=== PATIENT | female | born 1995 | race Caucasian/White ===

== ENCOUNTER 2018-09-28 20:15 | Inpatient (IN) | payer BC, OTHER ==
[2018-09-28 20:30] VITALS: BMI 36.9
--- NOTE | 2018-09-28 20:30 | PDOC ---
Rapid Medical Evaluation Chief Complaint: Weakness Time Seen by Provider: 09/28/18 20:25 Medical Evaluation: 09/28/18 20:25 I have performed a brief in-person evaluation of this patient. The patient presents with a chief complaint of: numbness to lower extremities since Tuesday - seen by PMD Tuesday and waits for MRI approval. Mom reports has been unsteady on feet due to weakness. Pertinent physical exam findings: AOx3, walks with unsteadiness I have ordered the following: UCG, UA, The patient will proceed to the ED for further evaluation. 09/28/18 20:30 Discharge Disposition - Diagnosis Weakness - Referrals - Patient Instructions - Post Discharge Activity
--- NOTE | 2018-09-28 21:30 | PDOC ---
History of Present Illness - General Chief Complaint: Weakness Stated Complaint: BLE NUMBNESS Time Seen by Provider: 09/28/18 20:25 - History of Present Illness Initial Comments: 23yo F with no significant PMH presenting with progressive abnormal sensation in her bilateral lower extremity. Patient states that two months ago she noted her bilateral feet had numbness and tingling. The sensation ascended to her knees and on Tuesday extended to her waist. The sensation is not painful and while the patient has normal strength and sense of position in her legs, she states she cannot feel them moving such that she needs to use visual cues to help her walk. Patient has had tripping and stumbling, and recently suffered a fall in which she landed on the ground. Did not hit her head and denies LOC. Reports saddle anesthesia. No IVDU or history of malignancy. No recent camping. No urinary/stool incontinence or significant weight change. No back pain. Saw her primary care provider on Tuesday upon which MRI was ordered, however, is pending insurance approval. Has never seen a neurologist but has an appointment to see one next week. Denies fevers, chills, chest pain, or shortness of breath. PCP: Dr. Bojorquez (in [place]) Past History - Past Medical History Allergies/Adverse Reactions: Allergies Allergy/AdvReac Type Severity Reaction Status Date / Time peanut Allergy Severe Rash Verified 09/28/18 20:30 Home Medications: Ambulatory Orders NK [No Known Home Medication] 09/28/18 COPD: No - Suicide/Smoking/Psychosocial Hx Smoking History: Never smoked Have you smoked in the past 12 months: No Information on smoking cessation initiated: No Hx Alcohol Use: No Drug/Substance Use Hx: No Review of Systems - Review of Systems Comments:: Constitutional: no fever, no chills HEENT: no throat pain, no dysphagia Cardiovascular: no chest pain, no palpitations Respiratory: no cough, no shortness of breath Gastrointestinal: no abdominal pain, no nausea Genitourinary: no dysuria, no frequency Musculoskeletal: no leg pain, no back pain Skin: no rash, no itching Neurologic: no headache, +abnormal sensation in BLE *Physical Exam - Vital Signs Last Vital Signs Temp Pulse Resp BP Pulse Ox 98.8 F 100 H 16 141/78 100 09/28/18 20:27 09/28/18 20:27 09/28/18 20:27 09/28/18 20:27 09/28/18 20:27 - Physical Exam Comments: General: Awake, alert, and fully oriented, in no acute distress Head: No signs of trauma Eyes: EOMI, sclera anicteric ENT: Moist mucus membranes Neck: Normal ROM, supple Lungs: Lungs clear, Normal breath sounds Cardio: Regular rhythm, S1 and S2 present Abdomen: Soft, nontender. No guarding, no rebound, no masses Extremities: Normal range of motion, Distal pulses present SKIN: Warm, Dry, normal turgor Neurologic: Cranial nerves II through XII intact. Normal speech, strength, coordination, and gait. Decreased sensation in BLE. Rectal: The skin is without erythema or induration. No external hemorrhoids, fissures, skin tags, warts, or discharge. Sphincter tone normal. There are no masses palpated on digital exam. ED Treatment Course - LABORATORY CBC & Chemistry Diagram: 09/29/18 07:15 09/29/18 07:15 Medical Decision Making - Medical Decision Making 23yo F with no significant PMH presenting with progressive abnormal sensation in her bilateral lower extremity. DDX including but not limited to cauda equina syndrome, mass, guillain barre syndrome, multiple sclerosis, B12 deficiency Labs Plan for admission 09/28/18 21:31 MRI is not available at this facility at this time. Discussed case with Dr. Pearl who recommended T spine and L spine MRI. He recommends awaiting a diagnosis before administering steroids. We will plan to admit the patient. 09/28/18 22:17 EKG: rate 78, QTc 424, NSR CBC WBC 7.6 K/mm3 (4.0-10.0) 09/29/18 07:15 RBC 4.36 M/mm3 (3.60-5.2) 09/29/18 07:15 Hgb 13.0 GM/dL (10.7-15.3) 09/29/18 07:15 Hct 37.9 % (32.4-45.2) 09/29/18 07:15 MCV 87.1 fl (80-96) 09/29/18 07:15 MCH 29.7 pg (25.7-33.7) 09/29/18 07:15 MCHC 34.2 g/dl (32.0-36.0) 09/29/18 07:15 RDW 13.3 % (11.6-15.6) 09/29/18 07:15 Plt Count 346 K/MM3 (134-434) 09/29/18 07:15 MPV 7.5 fl (7.5-11.1) 09/29/18 07:15 Absolute Neuts (auto) 4.5 K/mm3 (1.5-8.0) 09/29/18 07:15 Neutrophils % 58.7 % (42.8-82.8) 09/29/18 07:15 Lymphocytes % 32.5 % (8-40) 09/29/18 07:15 Monocytes % 7.1 % (3.8-10.2) 09/29/18 07:15 Eosinophils % 1.5 % (0-4.5) 09/29/18 07:15 Basophils % 0.2 % (0-2.0) 09/29/18 07:15 Nucleated RBC % 0 % (0-0) 09/29/18 07:15 ESR 15 mm/hr (0-20) 09/28/18 22:57 No anemia or leukocytosis Electrolytes unremarkable Dr. Whitlock discussed case with inpatient team who accepted patient for admission under Dr. Victor 09/29/18 00:28 *DC/Admit/Observation/Transfer Diagnosis at time of Disposition: Weakness, Paresthesia of both legs - Discharge Dispostion Condition at time of disposition: Fair - Referrals - Patient Instructions - Post Discharge Activity
[2018-09-28 22:36] LABS: EPI CELLS 4.7 /HPF (0-5/HPF); HYALINE CASTS 6 /lpf (0-8); URINE APPEARANCE CLOUDY; URINE BACTERIA 415.6 /hpf (NEGATIVE); URINE BILIRUBIN NEGATIVE (NEGATIVE); URINE COLOR YELLOW; URINE GLUCOSE (UA) NEGATIVE (NEGATIVE); URINE KETONE NEGATIVE (NEGATIVE); URINE LEUK ESTERASE 2+ (NEGATIVE); URINE NITRITE NEGATIVE (NEGATIVE); URINE PROTEIN NEGATIVE (NEGATIVE); URINE UROBILINOGEN 0.2 mg/dL (0.2-1.0); URINE WBC 23 /hpf (0-5)
[2018-09-28 22:44] LABS: URINE RBC 19.3 /hpf (0-4)
[2018-09-28 23:17] LABS: HEMATOCRIT 39.2 % (32.4-45.2); HEMOGLOBIN 13.5 GM/dL (10.7-15.3); MCH 29.8 pg (25.7-33.7); MCHC 34.3 g/dl (32.0-36.0); MEAN CELL VOLUME 86.9 fl (80-96); MEAN PLT VOLUME 7.6 fl (7.5-11.1); PLATELET COUNT 384 K/MM3 (134-434); RBC 4.52 M/mm3 (3.60-5.2); RDW 12.9 % (11.6-15.6); WHITE BLOOD COUNT 7.4 K/mm3 (4.0-10.0)
[2018-09-28 23:18] LABS: NEUT % 50.8 % (42.8-82.8)
[2018-09-28 23:19] LABS: BASO % 0.4 % (0-2.0); EOS % 2.2 % (0-4.5); MONO % 6.6 % (3.8-10.2)
[2018-09-28 23:32] LABS: ALBUMIN 3.7 g/dl (3.4-5.0); BILIRUBIN,TOTAL 0.5 mg/dL (0.2-1); BLOOD UREA NITROGEN 15.1 mg/dL (7-18); CALCIUM 8.9 mg/dL (8.5-10.1); CREATININE 0.8 mg/dL (0.55-1.3); POTASSIUM 3.9 mmol/L (3.5-5.1); TOT PROT 7.6 g/dl (6.4-8.2)
--- NOTE | 2018-09-28 23:37 | PDOC ---
Documentation entered by Gentry Marina SCRIBE, acting as scribe for Jaquelin Whitlock DO. Jaquelin Whitlock DO: This documentation has been prepared by the Salas escobar Joel, SCRIBE, under my direction and personally reviewed by me in its entirety. I confirm that the documentation accurately reflects all work, treatment, procedures, and medical decision making performed by me. Attending Attestation - Resident Resident Name: RosalindaTrenaCarey - ED Attending Attestation I have performed the following: I have examined & evaluated the patient, The case was reviewed & discussed with the resident, I agree w/resident's findings & plan, Exceptions are as noted - HPI HPI: 09/28/18 23:17 The patient is a 23 year old female with a significant PMH of ovarian cysts who presents to the emergency department for evaluation of worsening bilateral lower extremity numbness for the past 2 months which worsened 4 days ago. The patient states she has had intermittent episodes of bilateral lower extremity numbness which began in her feet and has radiated up her legs towards the umbilicus. She states she is unable to feel her feet touch the ground and subsequently had a fall last Tuesday in the setting of right leg weakness. She states she saw her PCP earlier in the week who ordered an MRI but was waiting on pre-approval. The patient states she is afraid to move on the bed as she does not want to fall. The patient denies chest pain, shortness of breath, headache and dizziness. Denies fever, chills, nausea, vomit, diarrhea and constipation. Denies dysuria, frequency, urgency and hematuria. Allergies: Peanuts. Past surgical history: None reported. Social history: No reported cigarette, alcohol, or drug use. - Physicial Exam PE: 09/28/18 23:18 GENERAL: Awake, alert, and fully oriented, in no acute distress HEAD: No signs of trauma EYES: PERRLA, EOMI, sclera anicteric, conjunctiva clear ENT: Auricles normal inspection, hearing grossly normal, nares patent, oropharynx clear without exudates. Moist mucosa NECK: Normal ROM, supple, no lymphadenopathy, JVD, or masses LUNGS: Breath sounds equal, clear to auscultation bilaterally. No wheezes, and no crackles HEART: Regular rate and rhythm, normal S1 and S2, no murmurs, rubs or gallops ABDOMEN: Soft, nontender, normoactive bowel sounds. No guarding, no rebound. No masses EXTREMITIES: Normal range of motion, no edema. No clubbing or cyanosis. No cords, erythema, or tenderness. 5/5 strength in upper extremities. NEUROLOGICAL: (+) Sensory change in bilateral LE up to level of umbilicus. (+) Hot/cold intolerance in bilateral LE. Normal finger to nose. Normal proprioception. Cranial nerves II through XII grossly intact. Normal speech. SKIN: Warm, Dry, normal turgor, no rashes or lesions noted. - Medical Decision Making 09/28/18 23:21 I, Dr. Jaquelin Whitlock, DO, attest that this document has been prepared under my direction and personally reviewed by me in its entirety. I further attest, that it accurately reflects all work, treatment, procedures and medical decision -making performed by me. 09/28/18 23:21 a/p: 23yo female with hx of ovarian cyst with 2m of progressive numbness and tingling to LE -started at her feet and now up to the level of the umbilicus -pt denies trauma -states it worsened this week -denies recent infections, no tick bites -states sensory changes and numbness -states she has started to feel off balance today because of sensory changes -fell today -cannot feel when she wipes, but no loss of bowel or bladder -has appt with Dr. Shannon for next week -resident discussed the case with dr. shannon who recommends MRI t/l spine -will send labs -no steroids at this time, concern for ms vs gbs, vs posterior lateral cord syndrome vs tabes dorsalis -will send b12, hiv, rpr -pt will need admission 09/28/18 23:36 labs reviewed microblog sent to [facility] pt willing to stay for neuro eval and mri tomorrow 09/29/18 00:23 case discussed with [facility] who accepts pt to service resident at the bedside to eval the patient *DC/Admit/Observation/Transfer Diagnosis at time of Disposition: Weakness, Paresthesia of both legs - Discharge Dispostion Condition at time of disposition: Fair Decision to Admit order: Yes - Referrals - Patient Instructions - Post Discharge Activity Heart Score/ECG Review - ECG Intrepretation Comment:: 09/28/18 23:37 sinus at 78, nl axis, nl interval, no acute st/t wave findings
[2018-09-28 23:49] LABS: INR 1.11 (0.83-1.09); PROTHROMBIN TIME (PATIENT) 13.1 SEC (9.7-13.0)
--- NOTE | 2018-09-29 00:45 | PN ---
Teaching Attending Note Name of Resident: Narda Delgado ATTENDING PHYSICIAN STATEMENT I saw and evaluated the patient. I reviewed the resident's note and discussed the case with the resident. I agree with the resident's findings and plan as documented. SUBJECTIVE: Patient is a 23 year old woman with a PMH of oOarian cysts who presents to the ER for evaluation of worsening bilateral lower extremity numbness for the past 2 months which worsened 4 days ago. The patient states she has had intermittent episodes of bilateral lower extremity numbness which began in her feet and has radiated up her legs towards the umbilicus. She states she is unable to feel her feet touch the ground and subsequently had a fall last Tuesday in the setting of right leg weakness. No loss of bladder or bowel function. LMP ended on September 17, 2018. She states she saw her PCP earlier in the week who ordered an MRI but was waiting on pre-approval. The patient states she is afraid to move on the bed as she does not want to fall. The patient denies chest pain, shortness of breath, headache and dizziness. Denies fever, chills, nausea, vomit , diarrhea and constipation. Denies dysuria, frequency, urgency and hematuria. OBJECTIVE: Alert Vital Signs Period Temp Pulse Resp BP Sys/Turner Pulse Ox Last 24 Hr 98.8 F-98.8 F 95-100 16-18 129-141/76-78 100-100 HEENT: No Jaundice, eye redness or discharge, PERRLA, EOMI. Normocephalic, atraumatic. External ears are normal and hearing is grossly intact. No nasal discharge. Neck: Supple, nontender. No palpable adenopathy or thyromegaly. No JVD Chest: Good effort. Clear to auscultation and percussion. Heart: Regular. No S3, rub or murmur Abdomen: Not distended, soft, nontender and no HSM. No rebound or guarding. Normal bowel sounds. Ext: Peripheral pulses intact. No leg edema. Skin: Warm and dry. No petechiae, rash or ecchymosis. Neuro: Alert. Oriented x3. CN 2-12 grossly intact. Diminished sensation in bilateral LE up to level of umbilicus. Reduced strenght in both legs but DTR are symmetric. Psych: Appropriate mood and affect. Good insight. Home Medications Medication Instructions Recorded NK [No Known Home Medication] 09/28/18 Abnormal Lab Results 09/28/18 09/28/18 09/28/18 22:10 22:57 22:57 PT with INR 13.10 H INR 1.11 H Chloride 108 H Anion Gap 6 L AST 10 L C-Reactive Protein Ur Leukocyte Esterase 2+ H 09/28/18 22:57 PT with INR INR Chloride Anion Gap AST C-Reactive Protein 0.4 H Ur Leukocyte Esterase ASSESSMENT AND PLAN: 1. Bilateral LE Neuropathy - Etiology unclear. Neurology consulted and we will get MRI of thoracic and lumbar spine. Will do serum test before MRI. If MRI is negative, then spinal fluid analysis, EMG and Nerve conduction studies will be indicated. Blood being sent for vitamin B12, HIV, RPR, GHASSAN and Lyme serology. Has evidence of UTI and will get IV Rocephin 1 gm q 24 hours pending culture result. Implement fall precautions. Consult PT. 2. Obesity Counseled on the risks associated with obesity. Will provide patient all the necessary assistance, counseling and positive reinforcement to facilitate weight loss. Consult property caretaker. 3. DVT prophylaxis - Lovenox 40 mg SQ q 24 hours. 4. Advance directives - Full code
--- NOTE | 2018-09-29 02:25 | HP ---
CHIEF COMPLAINT: bilateral LE weakness/paresthesias PCP: none HISTORY OF PRESENT ILLNESS: Ms. Polanco is a 23yo female with history of ovarian cysts who presents with bilateral LE weakness and paresthesias x2 months with significant worsening over last 3 days. 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 She fell on her L hip but denies any pain or bruising. 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 It was initially below the knee, but in the last 2-3 weeks the weakness and paresthesias ascended to the umbilical level. She has temp and pressure sensation but not fine touch. Pt denies fever, chills, chest pain, SOB, nausea, vomiting, MENDEZ, or dizziness. No recent travel. No family history of neurological conditions. ER course was notable for: (1) x-ray (2) consulting Dr. 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 Family History: HTN Allergies peanut Allergy (Severe, Verified 09/28/18 20:30) Rash HOME MEDICATIONS: Home Medications Medication Instructions Recorded NK [No Known Home Medication] 09/28/18 REVIEW OF SYSTEMS CONSTITUTIONAL: Absent: fever, chills, diaphoresis, generalized weakness, malaise, loss of appetite, weight change HEENT: Absent: rhinorrhea, nasal congestion, throat pain, ear pain CARDIOVASCULAR: Absent: chest pain, syncope, lightheadedness, peripheral edema RESPIRATORY: Absent: cough, shortness of breath, dyspnea with exertion GASTROINTESTINAL: Absent: abdominal pain, nausea, vomiting, diarrhea GENITOURINARY: Absent: dysuria MUSCULOSKELETAL: Absent: myalgia, arthralgia, joint swelling, back pain, neck pain SKIN: Absent: rash, itching, pallor HEMATOLOGIC/IMMUNOLOGIC: Absent: easy bleeding, easy bruising, lymphadenopathy, frequent infections ENDOCRINE: Absent: unexplained weight gain, unexplained weight loss, heat intolerance, cold intolerance NEUROLOGIC: Present: focal weakness and paresthesias, unsteady gait Absent: headache, dizziness, seizure, mental status changes, bladder or bowel incontinence PSYCHIATRIC: Absent: anxiety, depression, suicidal or homicidal ideation, hallucinations. PHYSICAL EXAMINATION Vital Signs - 24 hr 09/28/18 09/28/18 20:27 21:30 Temperature 98.8 F 98.8 F Pulse Rate 100 H Pulse Rate [ 95 H Left Apical] Respiratory 16 18 Rate Blood Pressure 141/78 Blood Pressure 129/76 [Right Arm] O2 Sat by Pulse 100 100 Oximetry (%) GENERAL: Awake, alert, and fully oriented, in no acute distress. HEAD: Normal with no signs of trauma. EYES: Pupils equal, round and reactive to light, extraocular movements intact, sclera anicteric, conjunctiva clear. No lid lag. EARS, NOSE, THROAT: Ears normal, nares patent. Moist mucous membranes. NECK: Normal range of motion, supple without lymphadenopathy, JVD, or masses. LUNGS: Breath sounds equal, clear to auscultation bilaterally. No wheezes, and no crackles. No accessory muscle use. HEART: Regular rate and rhythm, normal S1 and S2 without murmur, rub or gallop. ABDOMEN: Soft, nontender, not distended, normoactive bowel sounds, no guarding, no rebound, no masses. MUSCULOSKELETAL: Normal range of motion at all joints. No bony deformities or tenderness. UPPER EXTREMITIES: 2+ pulses, warm, well-perfused. No cyanosis. No clubbing. No peripheral edema. LOWER EXTREMITIES: 2+ pulses, warm, well-perfused. No peripheral edema. NEUROLOGICAL: Cranial nerves II-XII intact. Normal speech. 4/5 strength lower extremities. gait is narrow. PSYCHIATRIC: Cooperative. Good eye contact. Appropriate mood and affect. SKIN: Warm, dry, normal turgor, no rashes or lesions noted, normal capillary refill. Laboratory Results - last 24 hr 09/28/18 09/28/18 09/28/18 22:10 22:10 22:57 WBC RBC Hgb Hct MCV MCH MCHC RDW Plt Count MPV Absolute Neuts (auto) Neutrophils % Lymphocytes % Monocytes % Eosinophils % Basophils % Nucleated RBC % ESR PT with INR INR PTT (Actin FS) 31.4 Sodium Potassium Chloride Carbon Dioxide Anion Gap BUN Creatinine Est GFR (CKD-EPI)AfAm Est GFR (CKD-EPI)NonAf Random Glucose Calcium Total Bilirubin AST ALT Alkaline Phosphatase C-Reactive Protein Total Protein Albumin Urine Color Yellow Urine Appearance Cloudy Urine pH 5.0 Ur Specific [place] 1.031 Urine Protein Negative Urine Glucose (UA) Negative Urine Ketones Negative Urine Blood Negative Urine Nitrite Negative Urine Bilirubin Negative Urine Urobilinogen 0.2 Ur Leukocyte Esterase 2+ H Urine WBC (Auto) 23 Urine RBC (Auto) 19.3 Urine Casts (Auto) 6 U Epithel Cells (Auto) 4.7 Urine Bacteria (Auto) 415.6 Urine HCG, Qual Negative 09/28/18 09/28/18 09/28/18 22:57 22:57 22:57 WBC 7.4 RBC 4.52 Hgb 13.5 Hct 39.2 MCV 86.9 MCH 29.8 MCHC 34.3 RDW 12.9 Plt Count 384 MPV 7.6 Absolute Neuts (auto) 4.0 Neutrophils % 50.8 Lymphocytes % 40.0 Monocytes % 6.6 Eosinophils % 2.2 Basophils % 0.4 Nucleated RBC % 0 ESR PT with INR 13.10 H INR 1.11 H PTT (Actin FS) Sodium 142 Potassium 3.9 Chloride 108 H Carbon Dioxide 28 Anion Gap 6 L BUN 15.1 Creatinine 0.8 Est GFR (CKD-EPI)AfAm 118.76 Est GFR (CKD-EPI)NonAf 102.47 Random Glucose 87 Calcium 8.9 Total Bilirubin 0.5 AST 10 L ALT 16 Alkaline Phosphatase 68 C-Reactive Protein Total Protein 7.6 Albumin 3.7 Urine Color Urine Appearance Urine pH Ur Specific [place] Urine Protein Urine Glucose (UA) Urine Ketones Urine Blood Urine Nitrite Urine Bilirubin Urine Urobilinogen Ur Leukocyte Esterase Urine WBC (Auto) Urine RBC (Auto) Urine Casts (Auto) U Epithel Cells (Auto) Urine Bacteria (Auto) Urine HCG, Qual 09/28/18 09/28/18 22:57 22:57 WBC RBC Hgb Hct MCV MCH MCHC RDW Plt Count MPV Absolute Neuts (auto) Neutrophils % Lymphocytes % Monocytes % Eosinophils % Basophils % Nucleated RBC % ESR 15 PT with INR INR PTT (Actin FS) Sodium Potassium Chloride Carbon Dioxide Anion Gap BUN Creatinine Est GFR (CKD-EPI)AfAm Est GFR (CKD-EPI)NonAf Random Glucose Calcium Total Bilirubin AST ALT Alkaline Phosphatase C-Reactive Protein 0.4 H Total Protein Albumin Urine Color Urine Appearance Urine pH Ur Specific [place] Urine Protein Urine Glucose (UA) Urine Ketones Urine Blood Urine Nitrite Urine Bilirubin Urine Urobilinogen Ur Leukocyte Esterase Urine WBC (Auto) Urine RBC (Auto) Urine Casts (Auto) U Epithel Cells (Auto) Urine Bacteria (Auto) Urine HCG, Qual ASSESSMENT/PLAN: The pt is a 23yo female with no significant medical history who present with worsening weakness and paresthesias x 2 months. She has no family history of neurological diseases. She has diminished strength and has difficulty walking now. MRI T-spine and L-spine were recommended by Dr. Pearl but machine was down overnight. UA had +2 leuk esterase, but pt has no symptoms. EKG unremarkable. r/o neuro lesions and autoimmune disorders initially. -L spine x-ray -T and L spine MRI -CBC -CMP -Mg -RPR -HIV -HbA1c -TSH -Dr. Shannon consulted DVT prophylaxis SCDs FEN PO fluids monitor electrolytes regular diet Visit type - Emergency Visit Emergency Visit: Yes ED Registration Date: 09/29/18 Care time: The patient presented to the Emergency Department on the above date and was hospitalized for further evaluation of their emergent condition. - New Patient This patient is new to me today: Yes Date on this admission: 09/29/18 - Critical Care Critical Care patient: No ATTENDING PHYSICIAN STATEMENT I saw and evaluated the patient. I reviewed the resident's note and discussed the case with the resident. I agree with the resident's findings and plan as documented. SUBJECTIVE: OBJECTIVE: ASSESSMENT AND PLAN:
[2018-09-29 07:51] LABS: BASO % 0.2 % (0-2.0); EOS % 1.5 % (0-4.5); HEMATOCRIT 37.9 % (32.4-45.2); LYMPH % 32.5 % (8-40); MCH 29.7 pg (25.7-33.7); MCHC 34.2 g/dl (32.0-36.0); MEAN CELL VOLUME 87.1 fl (80-96); MEAN PLT VOLUME 7.5 fl (7.5-11.1); MONO % 7.1 % (3.8-10.2); NEUT % 58.7 % (42.8-82.8); RBC 4.36 M/mm3 (3.60-5.2); RDW 13.3 % (11.6-15.6); WHITE BLOOD COUNT 7.6 K/mm3 (4.0-10.0)
[2018-09-29 08:14] LABS: ALBUMIN 3.6 g/dl (3.4-5.0); ANION GAP 8 MMOL/L (8-16); BLOOD UREA NITROGEN 13.8 mg/dL (7-18); CALCIUM 8.9 mg/dL (8.5-10.1); CHLORIDE 107 mmol/L (98-107); CO2 24 mmol/L (21-32); GLUCOSE,RANDOM 95 mg/dL (74-106); POTASSIUM 4.3 mmol/L (3.5-5.1); SODIUM 140 mmol/L (136-145)
[2018-09-29 08:24] LABS: ALK PHOS 56 U/L (45-117); BILIRUBIN,TOTAL 0.6 mg/dL (0.2-1); CREATININE 0.6 mg/dL (0.55-1.3); MAGNESIUM 2.2 mg/dL (1.8-2.4); SGOT/AST 7 U/L (15-37); SGPT/ALT 16 U/L (13-61); TOT PROT 7.2 g/dl (6.4-8.2)
[2018-09-29 08:32] LABS: PLATELET COUNT 346 K/MM3 (134-434)
--- NOTE | 2018-09-29 12:49 | EKG ---
Test Reason : Blood Pressure : / mmHG Vent. Rate : 078 BPM Atrial Rate : 078 BPM P-R Int : 140 ms QRS Dur : 084 ms QT Int : 372 ms P-R-T Axes : 038 058 024 degrees QTc Int : 424 ms NORMAL SINUS RHYTHM WITH SINUS ARRHYTHMIA POSSIBLE LEFT ATRIAL ENLARGEMENT NO PREVIOUS ECGS AVAILABLE Confirmed by MADELINE DONALD MD ([id number]) on 09/29/2018 12:49:00 PM Referred By: Confirmed By:MADELINE DONALD MD
--- NOTE | 2018-09-29 15:15 | PN ---
Physical Exam: SUBJECTIVE: Patient seen and examined. Just returned from imaging. Describes onset of symptoms intermittently for the past 2 months. 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 OBJECTIVE: Vital Signs Period Temp Pulse Resp BP Sys/Turner Pulse Ox Last 24 Hr 98 F-98.8 F 62-100 16-20 106-141/58-97 99-100 Vital Signs Temp 98.0 F 09/29/18 14:57 Pulse 59 L 09/29/18 14:57 Resp 18 09/29/18 14:57 BP 118/54 L 09/29/18 14:57 Pulse Ox 99 09/29/18 09:00 Intake & Output 09/28/18 09/29/18 09/29/18 23:59 11:59 23:59 Intake Total 200 500 Balance 200 500 Weight 107.048 kg 106.458 kg Intake: Oral 200 500 Other: Voiding Method Toilet Toilet Toilet # Unmeasured Voids Void 3 Height 1.7 m Body Mass Index (BMI) 36.9 Weight Measurement Method Standing Scale Weight Measurement Method Est/Stated by Patient GENERAL: The patient is overweight, awake, alert, and fully oriented, in no acute distress. HEAD: Normal with no signs of trauma. EYES: PERRL, extraocular movements intact, sclera anicteric, conjunctiva clear. No ptosis. ENT: oropharynx clear without exudates, moist mucous membranes. NECK: Trachea midline, full range of motion, supple. LUNGS: Breath sounds equal, clear to auscultation bilaterally, no wheezes, no crackles HEART: Regular rate and rhythm, S1, S2 without murmur ABDOMEN: Soft, obese, nontender, nondistended, normoactive bowel sounds, no guarding EXTREMITIES: 2+ pulses, warm, well-perfused, no edema. NEUROLOGICAL: Cranial nerves II through XII grossly intact. Reduced sensation to deep and light touch medial aspect of RLE (possible L4 dermatome), reduced knee jerk reflex R, reduced triceps and biceps reflexes on R. Possible increased reflexes RUE/RLE. Normal speech, no facial droop, no hearing loss, no visual loss. Strength 4/5 LLE (hip flexion), 5/5 RLE (hip flexion), everything else 5/5. Normal tone. CBC, BMP 09/29/18 07:15 09/29/18 07:15 Laboratory Results - last 24 hr 09/28/18 09/28/18 09/28/18 22:10 22:10 22:57 WBC RBC Hgb Hct MCV MCH MCHC RDW Plt Count MPV Absolute Neuts (auto) Neutrophils % Lymphocytes % Monocytes % Eosinophils % Basophils % Nucleated RBC % ESR PT with INR INR PTT (Actin FS) 31.4 Sodium Potassium Chloride Carbon Dioxide Anion Gap BUN Creatinine Est GFR (CKD-EPI)AfAm Est GFR (CKD-EPI)NonAf Random Glucose Hemoglobin A1c % Calcium Magnesium Total Bilirubin AST ALT Alkaline Phosphatase C-Reactive Protein Total Protein Albumin Vitamin B12 TSH Beta HCG, Quant Urine Color Yellow Urine Appearance Cloudy Urine pH 5.0 Ur Specific [place] 1.031 Urine Protein Negative Urine Glucose (UA) Negative Urine Ketones Negative Urine Blood Negative Urine Nitrite Negative Urine Bilirubin Negative Urine Urobilinogen 0.2 Ur Leukocyte Esterase 2+ H Urine WBC (Auto) 23 Urine RBC (Auto) 19.3 Urine Casts (Auto) 6 U Epithel Cells (Auto) 4.7 Urine Bacteria (Auto) 415.6 Urine HCG, Qual Negative RPR Titer HIV 1&2 Antibody Screen HIV P24 Antigen 09/28/18 09/28/18 09/28/18 22:57 22:57 22:57 WBC 7.4 RBC 4.52 Hgb 13.5 Hct 39.2 MCV 86.9 MCH 29.8 MCHC 34.3 RDW 12.9 Plt Count 384 MPV 7.6 Absolute Neuts (auto) 4.0 Neutrophils % 50.8 Lymphocytes % 40.0 Monocytes % 6.6 Eosinophils % 2.2 Basophils % 0.4 Nucleated RBC % 0 ESR PT with INR 13.10 H INR 1.11 H PTT (Actin FS) Sodium 142 Potassium 3.9 Chloride 108 H Carbon Dioxide 28 Anion Gap 6 L BUN 15.1 Creatinine 0.8 Est GFR (CKD-EPI)AfAm 118.76 Est GFR (CKD-EPI)NonAf 102.47 Random Glucose 87 Hemoglobin A1c % Calcium 8.9 Magnesium Total Bilirubin 0.5 AST 10 L ALT 16 Alkaline Phosphatase 68 C-Reactive Protein Total Protein 7.6 Albumin 3.7 Vitamin B12 428 TSH Beta HCG, Quant Urine Color Urine Appearance Urine pH Ur Specific [place] Urine Protein Urine Glucose (UA) Urine Ketones Urine Blood Urine Nitrite Urine Bilirubin Urine Urobilinogen Ur Leukocyte Esterase Urine WBC (Auto) Urine RBC (Auto) Urine Casts (Auto) U Epithel Cells (Auto) Urine Bacteria (Auto) Urine HCG, Qual RPR Titer HIV 1&2 Antibody Screen HIV P24 Antigen 09/28/18 09/28/18 09/29/18 22:57 22:57 01:20 WBC RBC Hgb Hct MCV MCH MCHC RDW Plt Count MPV Absolute Neuts (auto) Neutrophils % Lymphocytes % Monocytes % Eosinophils % Basophils % Nucleated RBC % ESR 15 PT with INR INR PTT (Actin FS) Sodium Potassium Chloride Carbon Dioxide Anion Gap BUN Creatinine Est GFR (CKD-EPI)AfAm Est GFR (CKD-EPI)NonAf Random Glucose Hemoglobin A1c % Calcium Magnesium Total Bilirubin AST ALT Alkaline Phosphatase C-Reactive Protein 0.4 H Total Protein Albumin Vitamin B12 TSH Beta HCG, Quant Urine Color Urine Appearance Urine pH Ur Specific [place] Urine Protein Urine Glucose (UA) Urine Ketones Urine Blood Urine Nitrite Urine Bilirubin Urine Urobilinogen Ur Leukocyte Esterase Urine WBC (Auto) Urine RBC (Auto) Urine Casts (Auto) U Epithel Cells (Auto) Urine Bacteria (Auto) Urine HCG, Qual RPR Titer HIV 1&2 Antibody Screen Negative HIV P24 Antigen Negative 09/29/18 09/29/18 09/29/18 01:20 01:20 07:15 WBC 7.6 RBC 4.36 Hgb 13.0 Hct 37.9 MCV 87.1 MCH 29.7 MCHC 34.2 RDW 13.3 Plt Count 346 MPV 7.5 Absolute Neuts (auto) 4.5 Neutrophils % 58.7 Lymphocytes % 32.5 Monocytes % 7.1 Eosinophils % 1.5 Basophils % 0.2 Nucleated RBC % 0 ESR PT with INR INR PTT (Actin FS) Sodium Potassium Chloride Carbon Dioxide Anion Gap BUN Creatinine Est GFR (CKD-EPI)AfAm Est GFR (CKD-EPI)NonAf Random Glucose Hemoglobin A1c % Calcium Magnesium Total Bilirubin AST ALT Alkaline Phosphatase C-Reactive Protein Total Protein Albumin Vitamin B12 Cancelled TSH Beta HCG, Quant Urine Color Urine Appearance Urine pH Ur Specific [place] Urine Protein Urine Glucose (UA) Urine Ketones Urine Blood Urine Nitrite Urine Bilirubin Urine Urobilinogen Ur Leukocyte Esterase Urine WBC (Auto) Urine RBC (Auto) Urine Casts (Auto) U Epithel Cells (Auto) Urine Bacteria (Auto) Urine HCG, Qual RPR Titer Nonreactive HIV 1&2 Antibody Screen HIV P24 Antigen 09/29/18 09/29/18 07:15 07:15 WBC RBC Hgb Hct MCV MCH MCHC RDW Plt Count MPV Absolute Neuts (auto) Neutrophils % Lymphocytes % Monocytes % Eosinophils % Basophils % Nucleated RBC % ESR PT with INR INR PTT (Actin FS) Sodium 140 Potassium 4.3 Chloride 107 Carbon Dioxide 24 Anion Gap 8 BUN 13.8 Creatinine 0.6 Est GFR (CKD-EPI)AfAm 146.83 Est GFR (CKD-EPI)NonAf 126.68 Random Glucose 95 Hemoglobin A1c % 4.9 Calcium 8.9 Magnesium 2.2 Total Bilirubin 0.6 AST 7 L ALT 16 Alkaline Phosphatase 56 C-Reactive Protein Total Protein 7.2 Albumin 3.6 Vitamin B12 402 TSH 2.03 Beta HCG, Quant < 1.0 Urine Color Urine Appearance Urine pH Ur Specific [place] Urine Protein Urine Glucose (UA) Urine Ketones Urine Blood Urine Nitrite Urine Bilirubin Urine Urobilinogen Ur Leukocyte Esterase Urine WBC (Auto) Urine RBC (Auto) Urine Casts (Auto) U Epithel Cells (Auto) Urine Bacteria (Auto) Urine HCG, Qual RPR Titer HIV 1&2 Antibody Screen HIV P24 Antigen Current Medications Acetaminophen (Tylenol -) 650 mg PO Q6H PRN PRN Reason: HEADACHE Methylprednisolone Sodium Succinate (Solu-Medrol -) 1,000 mg IVPB DAILY [facility] Stop: 10/01/18 10:01 ASSESSMENT/PLAN: Patient is a 23 year old woman with a PMH of Ovarian cysts s/p R salpingo- oophorectomy who presents to the ER for evaluation of worsening bilateral lower extremity numbness for the past 2 months which worsened 4 days ago. #Recurrent worsening bilateral lower extremity numbness for the past 2 months which worsened 4 days ago. Could be [place] since ascending- could be pure sensory GBS with involvement of large sensory fibers leading to significant ataxia. EMG Differentials include Mononeuropathy multiplex- Lyme titers- pending, check GHASSAN , R/O small fiber neuropathy- could be idiopathic, or caused by sarcoid- CXR pending Neuro consult- Dr Pearl considering transverse myelitis- MRI pending read- lumbar/thoracic spine, L spine x-ray- neg R/O polyneuropathy-HIV -negative, Syphillis (denies STD hx, sexually active)-RPR - negative, Vit B12-nl, folate-nl R/O mononeuritis -[id number]-9.9, TSH- 2.03-normal Could be MS- may need brain MRI Could be immune mediated R/O idiopathic radiculoplexus neuropathy, pt hx of atopy as a child, denies asthma- ESR-15, nl, No hx of trauma or malignancy, no incontinence or retention R/O lumbosacral plexopathy R/o masses benign/malignant Pt on solumed #Ovarian cysts s/p R salpingo-oophorectomy secondary to torsion of ovarian cyst LMP 09/10 Stable SCDS, hold chem ppx for now Visit type - Emergency Visit Emergency Visit: Yes ED Registration Date: 09/29/18 Care time: The patient presented to the Emergency Department on the above date and was hospitalized for further evaluation of their emergent condition. - New Patient This patient is new to me today: Yes Date on this admission: 09/29/18 - Critical Care Critical Care patient: No - Discharge Referral Referred to [facility] Med P.C.: No ATTENDING PHYSICIAN STATEMENT I saw and evaluated the patient. I reviewed the resident's note and discussed the case with the resident. I agree with the resident's findings and plan as documented. SUBJECTIVE: OBJECTIVE: ASSESSMENT AND PLAN:
--- NOTE | 2018-09-29 15:25 | PN ---
Teaching Attending Note Name of Resident: Estella Crocker ATTENDING PHYSICIAN STATEMENT I saw and evaluated the patient. I reviewed the resident's note and discussed the case with the resident. I agree with the resident's findings and plan as documented with exceptions below. SUBJECTIVE: Patient seen and examined. Overall unchanged, still with tingling numbness till umbilicus. No weakness, urinary or bowel symptoms. Reports URI like illness 1.5 months ago. Reports afraid to walk as unable to feel her knees buckle and has to look at her feet to walk. OBJECTIVE: Vital Signs Period Temp Pulse Resp BP Sys/Turner Pulse Ox Last 24 Hr 98 F-98.8 F 62-100 16-20 106-141/58-97 99-100 Intake & Output 09/26/18 09/27/18 09/28/18 09/29/18 23:59 23:59 23:59 23:59 Intake Total 200 Balance 200 Weight 236 lb 234 lb 11.2 oz General: lying in bed in no acute distress Chest: CTAB, no rales or wheezing Abdomen: soft, obese, NT Extremities: no edema Neuro: AAOX3, power 5/5 all over, no pronator drift, unable to feel tough bilateral LE and trunk upto level of umbilicus band like fashion, able to feel pressure, nop spinal tenderness, sensation intact and symmetric to touch/ pressure above level of umbilius,intact rectal tone Home Medications Medication Instructions Recorded NK [No Known Home Medication] 09/28/18 Laboratory Results - last 24 hr 09/28/18 09/28/18 09/28/18 22:10 22:10 22:57 WBC RBC Hgb Hct MCV MCH MCHC RDW Plt Count MPV Absolute Neuts (auto) Neutrophils % Lymphocytes % Monocytes % Eosinophils % Basophils % Nucleated RBC % ESR PT with INR INR PTT (Actin FS) 31.4 Sodium Potassium Chloride Carbon Dioxide Anion Gap BUN Creatinine Est GFR (CKD-EPI)AfAm Est GFR (CKD-EPI)NonAf Random Glucose Hemoglobin A1c % Calcium Magnesium Total Bilirubin AST ALT Alkaline Phosphatase C-Reactive Protein Total Protein Albumin Vitamin B12 TSH Beta HCG, Quant Urine Color Yellow Urine Appearance Cloudy Urine pH 5.0 Ur Specific [place] 1.031 Urine Protein Negative Urine Glucose (UA) Negative Urine Ketones Negative Urine Blood Negative Urine Nitrite Negative Urine Bilirubin Negative Urine Urobilinogen 0.2 Ur Leukocyte Esterase 2+ H Urine WBC (Auto) 23 Urine RBC (Auto) 19.3 Urine Casts (Auto) 6 U Epithel Cells (Auto) 4.7 Urine Bacteria (Auto) 415.6 Urine HCG, Qual Negative RPR Titer HIV 1&2 Antibody Screen HIV P24 Antigen 09/28/18 09/28/18 09/28/18 22:57 22:57 22:57 WBC 7.4 RBC 4.52 Hgb 13.5 Hct 39.2 MCV 86.9 MCH 29.8 MCHC 34.3 RDW 12.9 Plt Count 384 MPV 7.6 Absolute Neuts (auto) 4.0 Neutrophils % 50.8 Lymphocytes % 40.0 Monocytes % 6.6 Eosinophils % 2.2 Basophils % 0.4 Nucleated RBC % 0 ESR PT with INR 13.10 H INR 1.11 H PTT (Actin FS) Sodium 142 Potassium 3.9 Chloride 108 H Carbon Dioxide 28 Anion Gap 6 L BUN 15.1 Creatinine 0.8 Est GFR (CKD-EPI)AfAm 118.76 Est GFR (CKD-EPI)NonAf 102.47 Random Glucose 87 Hemoglobin A1c % Calcium 8.9 Magnesium Total Bilirubin 0.5 AST 10 L ALT 16 Alkaline Phosphatase 68 C-Reactive Protein Total Protein 7.6 Albumin 3.7 Vitamin B12 428 TSH Beta HCG, Quant Urine Color Urine Appearance Urine pH Ur Specific [place] Urine Protein Urine Glucose (UA) Urine Ketones Urine Blood Urine Nitrite Urine Bilirubin Urine Urobilinogen Ur Leukocyte Esterase Urine WBC (Auto) Urine RBC (Auto) Urine Casts (Auto) U Epithel Cells (Auto) Urine Bacteria (Auto) Urine HCG, Qual RPR Titer HIV 1&2 Antibody Screen HIV P24 Antigen 09/28/18 09/28/18 09/29/18 22:57 22:57 01:20 WBC RBC Hgb Hct MCV MCH MCHC RDW Plt Count MPV Absolute Neuts (auto) Neutrophils % Lymphocytes % Monocytes % Eosinophils % Basophils % Nucleated RBC % ESR 15 PT with INR INR PTT (Actin FS) Sodium Potassium Chloride Carbon Dioxide Anion Gap BUN Creatinine Est GFR (CKD-EPI)AfAm Est GFR (CKD-EPI)NonAf Random Glucose Hemoglobin A1c % Calcium Magnesium Total Bilirubin AST ALT Alkaline Phosphatase C-Reactive Protein 0.4 H Total Protein Albumin Vitamin B12 TSH Beta HCG, Quant Urine Color Urine Appearance Urine pH Ur Specific [place] Urine Protein Urine Glucose (UA) Urine Ketones Urine Blood Urine Nitrite Urine Bilirubin Urine Urobilinogen Ur Leukocyte Esterase Urine WBC (Auto) Urine RBC (Auto) Urine Casts (Auto) U Epithel Cells (Auto) Urine Bacteria (Auto) Urine HCG, Qual RPR Titer HIV 1&2 Antibody Screen Negative HIV P24 Antigen Negative 09/29/18 09/29/18 09/29/18 01:20 01:20 07:15 WBC 7.6 RBC 4.36 Hgb 13.0 Hct 37.9 MCV 87.1 MCH 29.7 MCHC 34.2 RDW 13.3 Plt Count 346 MPV 7.5 Absolute Neuts (auto) 4.5 Neutrophils % 58.7 Lymphocytes % 32.5 Monocytes % 7.1 Eosinophils % 1.5 Basophils % 0.2 Nucleated RBC % 0 ESR PT with INR INR PTT (Actin FS) Sodium Potassium Chloride Carbon Dioxide Anion Gap BUN Creatinine Est GFR (CKD-EPI)AfAm Est GFR (CKD-EPI)NonAf Random Glucose Hemoglobin A1c % Calcium Magnesium Total Bilirubin AST ALT Alkaline Phosphatase C-Reactive Protein Total Protein Albumin Vitamin B12 Cancelled TSH Beta HCG, Quant Urine Color Urine Appearance Urine pH Ur Specific [place] Urine Protein Urine Glucose (UA) Urine Ketones Urine Blood Urine Nitrite Urine Bilirubin Urine Urobilinogen Ur Leukocyte Esterase Urine WBC (Auto) Urine RBC (Auto) Urine Casts (Auto) U Epithel Cells (Auto) Urine Bacteria (Auto) Urine HCG, Qual RPR Titer Nonreactive HIV 1&2 Antibody Screen HIV P24 Antigen 09/29/18 09/29/18 07:15 07:15 WBC RBC Hgb Hct MCV MCH MCHC RDW Plt Count MPV Absolute Neuts (auto) Neutrophils % Lymphocytes % Monocytes % Eosinophils % Basophils % Nucleated RBC % ESR PT with INR INR PTT (Actin FS) Sodium 140 Potassium 4.3 Chloride 107 Carbon Dioxide 24 Anion Gap 8 BUN 13.8 Creatinine 0.6 Est GFR (CKD-EPI)AfAm 146.83 Est GFR (CKD-EPI)NonAf 126.68 Random Glucose 95 Hemoglobin A1c % 4.9 Calcium 8.9 Magnesium 2.2 Total Bilirubin 0.6 AST 7 L ALT 16 Alkaline Phosphatase 56 C-Reactive Protein Total Protein 7.2 Albumin 3.6 Vitamin B12 402 TSH 2.03 Beta HCG, Quant < 1.0 Urine Color Urine Appearance Urine pH Ur Specific [place] Urine Protein Urine Glucose (UA) Urine Ketones Urine Blood Urine Nitrite Urine Bilirubin Urine Urobilinogen Ur Leukocyte Esterase Urine WBC (Auto) Urine RBC (Auto) Urine Casts (Auto) U Epithel Cells (Auto) Urine Bacteria (Auto) Urine HCG, Qual RPR Titer HIV 1&2 Antibody Screen HIV P24 Antigen LS spine xray results reviewed ASSESSMENT AND PLAN: 23 yof with PMhx of ovarian cysts admitted with ascending sensory disturbances -Ascending sensory disturbances, sensory variant GBS, r/o tranverse myelitis vs spinal cord disorders Plan: Ascending pattern of sensory disturbances, Intact pressure sensation but absent touch and proprioception. No bowel/bladder symptoms. reports URI like illness 1.5 months ago. Symtpoms over last 3 weeks, progressing to thigh and lower abdomen till umbilicus area over last week to [address] Moya. MRI T/Lspine. EMG. TSH/B12 noted. neuro checks. Monitor closely Plan discussed with patient and nursing, all questions answered.
[2018-09-29] MEDS ORDERED: ACETAMINOPHEN 325 MG TABLET (FP) PO PRN (15:33)
--- NOTE | 2018-09-29 16:01 | CON.NEURO ---
Consult - Alcohol/Substance Use Hx Alcohol Use: No - Smoking History Smoking history: Never smoked Have you smoked in the past 12 months: No Home Medications - Allergies Allergies/Adverse Reactions: Allergies Allergy/AdvReac Type Severity Reaction Status Date / Time peanut Allergy Severe Rash Verified 09/28/18 20:30 - Home Medications Home Medications: Ambulatory Orders NK [No Known Home Medication] 09/28/18 Physical Exam-Neuro Vital Signs: Vital Signs Temperature 98.8 F 09/29/18 10:00 Pulse Rate 69 09/29/18 10:00 Respiratory Rate 20 09/29/18 10:00 Blood Pressure 121/58 L 09/29/18 10:00 O2 Sat by Pulse Oximetry (%) 99 09/29/18 09:00 Labs: CBC, BMP 09/29/18 07:15 09/29/18 07:15 INR, PTT INR 1.11 (0.83-1.09) H 09/28/18 22:57 Assessment/Plan cc Numbness and weakness for two month in lower extremity HPI 23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 Patient has been ahving lower extremity were numbness, as if it goes to sleep for two months. Initially it was mild. She is not sure how it started and slowly it progressed to involved upto mid thoracic region. Patient is able to stand and wealk. She denies any trauma, fever or cancer. Patient denies any bowel or bladder syptoms. Patient has these symptoms worsen in last few days and now and she came to hospital. Ther ie sno back pain . 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 Family History: HTN Allergies peanut Allergy (Severe, Verified 09/28/18 20:30) Rash HOME MEDICATIONS: Home Medications Medication Instructions Recorded NK [No Known Home Medication] 09/28/18 ROS , FH reviewed in chart NEUROLOGICAL EXAMINATION Alert oriented x 3 CN all intact motor 5/5 upper extremity there is mild weakness in lowere extremity in dorsiflexion otherwise there is no weaknes in hip flexion, extension, knee flexion and knee extension sensation There diminished senation to pin prick and fine touch upto t10 reflex are generalized diminished good rectal tone T and L spine is pending Assesment /Plan slowly progressive sensory symptoms in lower extremity ( sensory symptoms are worse than motor weaknes) no trauma, fever or cancer.suspect Thoracic cord lesion ? transverse myelitis, other possibility etradural lesion vs GBS. Plan: emg, b12,folate tsh - follow up on mri of T and L spine Thanking you so much Branden Pearl md
[2018-09-29] MEDS ORDERED: methylPREDNISolone NA SUCC 1000 MG/8 ML VIAL IVPUSH SCH (17:45)
[2018-09-30 09:18] LABS: ALBUMIN 3.6 g/dl (3.4-5.0); BILIRUBIN,TOTAL 0.7 mg/dL (0.2-1); BLOOD UREA NITROGEN 12.2 mg/dL (7-18); CREATININE 0.6 mg/dL (0.55-1.3); MAGNESIUM 2.3 mg/dL (1.8-2.4); PHOSPHOROUS 3.9 mg/dL (2.5-4.9); POTASSIUM 4.2 mmol/L (3.5-5.1); TOT PROT 7.3 g/dl (6.4-8.2)
[2018-09-30] MEDS ORDERED: PT OWN MED DRAWER 7, Y5N ONE (09:51)
--- NOTE | 2018-09-30 09:55 | PN ---
Physical Exam: SUBJECTIVE: Patient seen and examined, symptoms overall unchanged. OBJECTIVE: Vital Signs Period Temp Pulse Resp BP Sys/Turner Pulse Ox Last 24 Hr 97.8 F-98.8 F 59-89 18-20 118-136/54-89 98 General: lying in bed in no acute distress Chest: CTAB, no rales or wheezing Abdomen: soft, obese, NT Extremities: no edema Neuro: AAOX3, power 5/5 all over, no pronator drift, unable to feel tough bilateral LE and trunk upto level of umbilicus band like fashion, able to feel pressure, nop spinal tenderness, sensation intact and symmetric to touch/ pressure above level of umbilius,intact rectal tone, DTR diminished Laboratory Results - last 24 hr 09/29/18 09/29/18 09/29/18 01:20 01:20 07:15 Sodium 140 Potassium 4.3 Chloride 107 Carbon Dioxide 24 Anion Gap 8 BUN 13.8 Creatinine 0.6 Est GFR (CKD-EPI)AfAm 146.83 Est GFR (CKD-EPI)NonAf 126.68 Random Glucose 95 Calcium 8.9 Phosphorus Magnesium 2.2 Total Bilirubin 0.6 AST 7 L ALT 16 Alkaline Phosphatase 56 Total Protein 7.2 Albumin 3.6 Vitamin B12 402 TSH 2.03 Beta HCG, Quant < 1.0 RPR Titer Nonreactive HIV 1&2 Ag/Ab, 4th Gen Non reactive 09/30/18 08:13 Sodium 139 Potassium 4.2 Chloride 105 Carbon Dioxide 27 Anion Gap 7 L BUN 12.2 Creatinine 0.6 Est GFR (CKD-EPI)AfAm 146.83 Est GFR (CKD-EPI)NonAf 126.68 Random Glucose 91 Calcium 9.0 Phosphorus 3.9 Magnesium 2.3 Total Bilirubin 0.7 AST 9 L ALT 17 Alkaline Phosphatase 56 Total Protein 7.3 Albumin 3.6 Vitamin B12 TSH Beta HCG, Quant RPR Titer HIV 1&2 Ag/Ab, 4th Gen Active Medications Generic Name Dose Route Start Last Admin Trade Name Freq PRN Reason Stop Dose Admin Acetaminophen 650 mg 09/29/18 15:33 Tylenol - PO Q6H PRN HEADACHE Methylprednisolone Sodium Succinate 1,000 mg 09/29/18 18:15 Solu-Medrol - IVPB 10/01/18 10:01 DAILY SULY Thoracic/Lumbar spine MRI resuts reviewed ASSESSMENT/PLAN: 23 yof with PMhx of ovarian cysts admitted with ascending sensory disturbances -Ascending sensory disturbances, tranverse myelitis, vs sensory variant GB, vs spinal cord lesion vs Multiple sclerosis Plan: Neurology input appreciated. Discussed with Dr. Moya. Pulse dose steroids. Neuro checks. MRI brain/C-spine, EMG. PLan for LP. B12/hiv neg. Follow up QFT. ID input given post infectious transverse myelitis on differential for additional work up. Plan discussed with patient and mother at bedside in detail, all questions answered. Visit type - Emergency Visit Emergency Visit: Yes ED Registration Date: 09/29/18 Care time: The patient presented to the Emergency Department on the above date and was hospitalized for further evaluation of their emergent condition. - New Patient This patient is new to me today: No - Critical Care Critical Care patient: No - Discharge Referral Referred to [facility] Med P.C.: No
[2018-09-30] MEDS: methylPREDNISolone NA SUCC 1000 MG/8 ML VIAL IVPB SCH (10:42)
--- NOTE | 2018-09-30 11:28 | PN ---
Progress Note (short form) - Note Progress Note: ID CONSULT DICTATED ? TRANSVERSE MYELITIS SECONDARY TO ANTECEDENT VIRAL URI NO EXPOSURE HX FOR TICK OR MOSQUITO- RELATED ILLNESSES NO RECENT IMMUNIZATIONS HIV, RPR (-) AWAIT LYME SEROLOGY NASAL SWAB RESP VIRUS PANEL SERUM WNV IGM/IGG MYCOPLASMA TITER/ COLD AGGLUTININS CSF FOR: HSV 1/2 PCR VZV PCR WNV IGM/IGG VIRAL ENCEPHALITIS PANEL CSF VDRL CSF LYME INDEX/ PCR
[2018-09-30 11:40] LABS: BASO % 0.3 % (0-2.0); EOS % 1.7 % (0-4.5); HEMATOCRIT 40.5 % (32.4-45.2); HEMOGLOBIN 13.6 GM/dL (10.7-15.3); LYMPH % 34.3 % (8-40); MCH 29.7 pg (25.7-33.7); MCHC 33.6 g/dl (32.0-36.0); MEAN CELL VOLUME 88.2 fl (80-96); MEAN PLT VOLUME 8.1 fl (7.5-11.1); MONO % 6.8 % (3.8-10.2); NEUT % 56.9 % (42.8-82.8); PLATELET COUNT 364 K/MM3 (134-434); RBC 4.59 M/mm3 (3.60-5.2); RDW 13.3 % (11.6-15.6)
--- NOTE | 2018-09-30 12:06 | CONS ---
INFECTIOUS DISEASE CONSULTATION DATE OF CONSULTATION: HISTORY: The patient is a 23-year-old previously healthy female who is evaluated for possible transverse myelitis. She reports a [id number] of progressively worsening numbness and tingling of the lower extremities. She reports that approximately 2 months ago she developed tingling and numbness involving her feet. Over the past 5 days, it has progressively worsened to the point where these symptoms extended to the knees bilaterally and to the waist. She was having difficulty ambulating and began stumbling and tripping. Her symptoms are mostly sensory. Her motor strength she reports has been pretty much intact. She was admitted to the hospital where an MRI was performed and showed possible transverse myelitis involving T1, T2, T6, T7. Neurology was consulted. The patient is scheduled to have a spinal tap for a CSF analysis. Of note, she reports having an upper respiratory tract infection approximately 1-1/2 month ago, which spontaneously resolved. She denies any GI symptoms. No recent diarrheal illness. 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 She denies any tick exposure. No reports of rash. No known mosquito bites. She did travel to [place] approximately 1 week ago; however, this was well after symptoms developed. She denies history of herpes simplex involving the orolabial area or genital area. Denies risk factors for HIV. No history of STDs. Patient denies recent vaccinations. Last vaccination approximately 1 year ago, hepatitis B. PAST MEDICAL HISTORY: Negative. PAST SURGICAL HISTORY: Status post right salpingo-oophorectomy. ALLERGIES: No known allergies. MEDICATIONS: None. 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 Spends very little time in outdoor areas other than at the [employer]. No camping. No history of tobacco, alcohol, or illicit drug use. LABORATORY DATA: White count 7.6, neutrophils 58, lymphocytes 32, monocytes 7, hematocrit 37.9, platelet count 346, creatinine 0.6. Liver enzymes normal. ESR 15. C-reactive protein 0.4. Urinalysis 23 white cells. Chest x-ray: Negative for acute infiltrate. PHYSICAL EXAMINATION: General: She is awake and alert in no acute distress. Not acutely toxic appearing. Vital Signs: Temperature 98, blood pressure 136/89, pulse 89 regular, respirations 20 per minute. HEENT: Sclerae anicteric. Oropharynx negative. Neck: Supple. No palpable nodes. Heart: Sounds S1, S2. Lungs: Clear. Abdomen: Obese, soft, nontender. Extremities: Negative for edema. No rash noted. IMPRESSION: Rule out transverse myelitis. PLAN: Etiology of neurological symptoms not clear. Cannot rule out transverse myelitis secondary to antecedent viral upper respiratory tract infection. No exposure history to suggest mosquito or tick-borne illnesses. Patient has been HIV tested and is negative. RPR is negative. Lyme titer is pending. Would obtain spinal fluid analysis for herpes simplex 1 and 2 PCR. West Nile antibodies. Viral encephalitis panel. Spinal fluid for varicella zoster PCR. Lyme PCR. We will follow. Thank you for the kind referral. MADELINE ALVARADO M.D. [id number]
[2018-09-30] MEDS ORDERED: LIDOCAINE HCL 1%, 10 MG/ML (20ML VIAL) ONE (13:18)
--- NOTE | 2018-09-30 13:30 | PN ---
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 Patient has been ahving lower extremity were numbness, as if it goes to sleep for two months. Initially it was mild. She is not sure how it started and slowly it progressed to involved upto mid thoracic region. Patient is able to stand and wealk. She denies any trauma, fever or cancer. Patient denies any bowel or bladder syptoms. Patient has these symptoms worsen in last few days and now and she came to hospital. No new symptoms, mri of brain has been ordered and still waiting. Patient denies any new symptoms. R NEUROLOGICAL EXAMINATION Alert oriented x 3 CN all intact motor 5/5 upper extremity there is mild weakness in lowere extremity in dorsiflexion otherwise there is no weaknes in hip flexion, extension, knee flexion and knee extension sensation There diminished senation to pin prick and fine touch upto t10 reflex are generalized diminished good rectal tone T spine showed there is T1-2, T6-7 level Lesion and swelling Assesment /Plan slowly progressive sensory symptoms in lower extremity ( sensory symptoms are worse than motor weaknes) There is T spine lesion . Suspect Tranverse myelitis Plan : suggest to continue Iv solumedrol for five days - mri of brain and c spine - spinal tap for further work up - PT -Rehab consideration Thanking you so much Branden Pearl MD
--- NOTE | 2018-10-01 10:09 | PN ---
Physical Exam: SUBJECTIVE: Patient seen and examined, reports some return in sensation in both feet, feels a bit better, no further progression of her symptoms. No new concerns. OBJECTIVE: Vital Signs Period Temp Pulse Resp BP Sys/Turner Pulse Ox Last 24 Hr 97.5 F-98.4 F 82-108 20-20 132-144/58-88 98 Intake & Output 09/28/18 09/29/18 09/30/18 10/01/18 23:59 23:59 23:59 23:59 Intake Total 1040 800 Balance 1040 800 Weight 236 lb 234 lb 11.2 oz General: lying in bed in no acute distress Chest: CTAB, no rales or wheezing Abdomen: soft, obese, NT Extremities: no edema Neuro: AAOX3, power 5/5 all over, no pronator drift, improved exam, pos sensory exam to touch biltarel feet, still unable to feel touch abvoe to trunk upto level of umbilicus band like fashion, able to feel pressure, no spinal tenderness, sensation intact and symmetric to touch/pressure above level of umbilius, intact rectal tone, DTR diminished Laboratory Results - last 24 hr 09/28/18 09/30/18 22:57 08:13 WBC 7.0 RBC 4.59 Hgb 13.6 Hct 40.5 MCV 88.2 MCH 29.7 MCHC 33.6 RDW 13.3 Plt Count 364 MPV 8.1 Absolute Neuts (auto) 4.0 Neutrophils % 56.9 Lymphocytes % 34.3 Monocytes % 6.8 Eosinophils % 1.7 Basophils % 0.3 Nucleated RBC % 0 Lyme Screen IgG & IgM <0.91 Active Medications Generic Name Dose Route Start Last Admin Trade Name Freq PRN Reason Stop Dose Admin Acetaminophen 650 mg 09/29/18 15:33 Tylenol - PO Q6H PRN HEADACHE ASSESSMENT/PLAN: 23 yof with PMhx of ovarian cysts admitted with ascending sensory disturbances -Ascending sensory disturbances, tranverse myelitis, vs sensory variant GB, vs spinal cord lesion vs Multiple sclerosis Plan: Some clinical improvement. Continue stress does steroids. Neuro checks. Neurology input appreciated. MRI brain/C-spine, EMG. PLan for LP. B12/hiv neg. Follow up QFT. ID input appreciated. Follow up WNV IgG/IgM, Mycoplasma titers/cold agglutinins. CSF studies to be sent, noted. Plan discussed with patient and mother at bedside in detail, all questions answered. Discussed with nursing. Visit type - Emergency Visit Emergency Visit: Yes ED Registration Date: 09/29/18 Care time: The patient presented to the Emergency Department on the above date and was hospitalized for further evaluation of their emergent condition. - New Patient This patient is new to me today: No - Critical Care Critical Care patient: No - Discharge Referral Referred to [facility] Med P.C.: No
--- NOTE | 2018-10-01 10:36 | PN ---
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 Patient has been ahving lower extremity were numbness, as if it goes to sleep for two months. Initially it was mild. She is not sure how it started and slowly it progressed to involved upto mid thoracic region. Patient is able to stand and wealk. She denies any trauma, fever or cancer. Patient denies any bowel or bladder syptoms. Patient has these symptoms worsen in last few days and now and she came to hospital. No new symptoms, mri of brain has been ordered and still waiting. Patient denies any new symptoms. NEUROLOGICAL EXAMINATION Alert oriented x 3 CN all intact motor 5/5 upper extremity there is mild weakness in lowere extremity in dorsiflexion otherwise there is no weaknes in hip flexion, extension, knee flexion and knee extension sensation There diminished senation to pin prick and fine touch upto t10 reflex are generalized diminished good rectal tone T spine showed there is T1-2, T6-7 level Lesion and swelling mri of brain and c spine pending b12 is normal, hiv negative Assesment /Plan slowly progressive sensory symptoms in lower extremity ( sensory symptoms are worse than motor weaknes) There is T spine lesion . Suspect Tranverse myelitis Plan : suggest to continue Iv solumedrol for five days - mri of brain and c spine pending - spinal tap for further work up Thanking you so much Branden Pearl MD
[2018-10-01] MEDS: methylPREDNISolone NA SUCC 1000 MG/8 ML VIAL IVPB SCH (11:00)
[2018-10-02 07:14] LABS: BASO % 0.2 % (0-2.0); HEMATOCRIT 38.3 % (32.4-45.2); HEMOGLOBIN 12.9 GM/dL (10.7-15.3); MCH 29.6 pg (25.7-33.7); MCHC 33.5 g/dl (32.0-36.0); MEAN CELL VOLUME 88.2 fl (80-96); MONO % 3.5 % (3.8-10.2); NEUT % 87.3 % (42.8-82.8); PLATELET COUNT 390 K/MM3 (134-434); RBC 4.35 M/mm3 (3.60-5.2); RDW 13.1 % (11.6-15.6); WHITE BLOOD COUNT 14.5 K/mm3 (4.0-10.0)
[2018-10-02 07:27] LABS: BLOOD UREA NITROGEN 10.2 mg/dL (7-18); CALCIUM 9.2 mg/dL (8.5-10.1); CREATININE 0.6 mg/dL (0.55-1.3); MAGNESIUM 2.5 mg/dL (1.8-2.4); PHOSPHOROUS 4.3 mg/dL (2.5-4.9); POTASSIUM 4.2 mmol/L (3.5-5.1)
--- NOTE | 2018-10-02 07:28 | PN ---
Physical Exam: SUBJECTIVE: Patient seen and examined. Pt feels bandlike sensation around abdomen is ascending, but thinks she is slowing regaining sensation in toes. No difficulty breathing, no fevers. No urinary or rectal incontinence. Still on high dose steroids per neuro- for 5 days then stop. OBJECTIVE: Vital Signs Period Temp Pulse Resp BP Sys/Turner Pulse Ox Last 24 Hr 97.8 F-98.4 F 66-86 20-20 116-133/54-83 99-99 Vital Signs Temp 98.8 F 10/02/18 21:00 Pulse 63 10/02/18 21:00 Resp 20 10/02/18 21:00 BP 117/62 10/02/18 21:00 Pulse Ox 98 10/02/18 21:00 Intake & Output 10/02/18 10/02/18 10/03/18 11:59 23:59 11:59 Intake Total 1660 Balance 1660 Intake: Oral 1100 Oral Supplement 560 Other: Voiding Method Toilet Toilet # Unmeasured Voids Void 2 Bowel Movement No GENERAL: The patient is awake, alert, and fully oriented, in no acute distress. EYES: PERRL, extraocular movements intact, sclera anicteric, conjunctiva clear. No ptosis. ENT: Ears normal, nares patent, oropharynx clear without exudates, moist mucous membranes. NECK: Trachea midline, full range of motion, supple. LUNGS: Breath sounds equal, clear to auscultation bilaterally, no wheezes, no crackles HEART: Regular rate and rhythm, S1, S2 without murmur, rub or gallop. ABDOMEN: Soft, nontender, nondistended, normoactive bowel sounds, no guarding EXTREMITIES: 2+ pulses, warm, well-perfused, no edema. NEUROLOGICAL: AAO x3. Able to move all extremities- strength 5/5 globally. Light touch Sensation reduced medially over legs bilaterally, posteriorly about lumbar 3/4 down to sacrum. Pt is however able to feel temperature,and pressure equally. DTR reduced b/l. CBC, BMP 10/02/18 06:30 10/02/18 06:30 Laboratory Results - last 24 hr 10/02/18 06:30 Sodium 140 Potassium 4.2 Chloride 106 Carbon Dioxide 26 Anion Gap 8 BUN 10.2 Creatinine 0.6 Est GFR (CKD-EPI)AfAm 146.83 Est GFR (CKD-EPI)NonAf 126.68 Random Glucose 132 H Calcium 9.2 Phosphorus 4.3 Magnesium 2.5 H Active Medications Generic Name Dose Route Start Last Admin Trade Name Freq PRN Reason Stop Dose Admin Acetaminophen 650 mg 09/29/18 15:33 Tylenol - PO Q6H PRN HEADACHE Current Medications Acetaminophen (Tylenol -) 650 mg PO Q6H PRN PRN Reason: HEADACHE Methylprednisolone Sodium Succinate (Solu-Medrol -) 1,000 mg IVPB DAILY SULY Stop: 10/03/18 10:01 Last Admin: 10/02/18 11:32 Dose: 1,000 mg Ambulatory Orders NK [No Known Home Medication] 09/28/18 MRI Cspine 10/02/18- Demyelination MRI- brain 10/02/18- no demyelination MRI- lumbar/Thoracic - evidence of myelitis L spine x-ray- neg ASSESSMENT/PLAN: Patient is a 23 year old woman with a PMH of Ovarian cysts s/p R salpingo- oophorectomy who presents to the ER for evaluation of worsening bilateral lower extremity numbness for the past 2 months which worsened 4 days ago. #Recurrent worsening bilateral lower extremity numbness for the past 2 months which worsened 4 days ago. Transverse myelitis R/O infectious vs idiopathic transverse myelitis vs MS LP -unsuccessful- pending IR guided LP MRI- Cspine suggestive of demyelination MRI Thoracolumbar- Suggestive of myelitis Cont IV solumed 1000mg to complete 5 days and stop Guillian Aurelia Unlikely per Dr Pearl- more a diagnosis of exclusion-imaging findings superceed EMG- Pending serologies to R/O infectious myelitis Other differentials mostly ruled out: Mononeuropathy multiplex vs small fiber neuropathy vs polyneuropathy vs idiopathic radiculoplexus neuropathy vs tumor (benign/malignant) vs trauma vs lumbosacral plexopathy vs mononeuritis Lyme titers,GHASSAN, HIV -negative, Syphillis -RPR- negative, Vit B12-nl, folate-nl TraA2j-5.9, TSH- 2.03-normal ESR-15, nl, #Ovarian cysts s/p R salpingo-oophorectomy secondary to torsion of ovarian cyst LMP 09/10 Stable Visit type - Emergency Visit Emergency Visit: Yes ED Registration Date: 09/29/18 Care time: The patient presented to the Emergency Department on the above date and was hospitalized for further evaluation of their emergent condition. - New Patient This patient is new to me today: No - Critical Care Critical Care patient: No - Discharge Referral Referred to [facility] Med P.C.: No ATTENDING PHYSICIAN STATEMENT I saw and evaluated the patient. I reviewed the resident's note and discussed the case with the resident. I agree with the resident's findings and plan as documented. SUBJECTIVE: OBJECTIVE: ASSESSMENT AND PLAN:
--- NOTE | 2018-10-02 09:55 | PN ---
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 Patient has been ahving lower extremity were numbness, as if it goes to sleep for two months. Initially it was mild. She is not sure how it started and slowly it progressed to involved upto mid thoracic region. Patient is able to stand and wealk. She denies any trauma, fever or cancer. Patient denies any bowel or bladder syptoms. Patient has these symptoms worsen in last few days and now and she came to hospital. SPINAL TAP was attempted yesterday after taking consent and under full aseptic precautiosn, it was failed as her intervertebral space cant be palpated and it was aborted after two attempt. Patient is doing fine , no complication during procedure Patient feels exactly same NEUROLOGICAL EXAMINATION Alert oriented x 3 CN all intact motor 5/5 upper extremity there is mild weakness in lowere extremity in dorsiflexion otherwise there is no weaknes in hip flexion, extension, knee flexion and knee extension sensation There diminished senation to pin prick and fine touch upto t10 reflex are generalized diminished good rectal tone T spine showed there is T1-2, T6-7 level Lesion and swelling mri of brain and c spine pending b12 is normal, hiv negative Assesment /Plan slowly progressive sensory symptoms in lower extremity ( sensory symptoms are worse than motor weaknes) There is T spine lesion . Suspect Tranverse myelitis . Spinal tap is pending, failed at bed side. mri of brain and c spine is pending Plan : suggest to continue Iv solumedrol for five days - mri of brain and c spine pending - spinal tap for further work up - consider rehab Thanking you so much Branden Pearl MD
[2018-10-02] MEDS: methylPREDNISolone NA SUCC 1000 MG/8 ML VIAL IVPB SCH (11:32)
--- NOTE | 2018-10-02 13:37 | PN ---
Teaching Attending Note Name of Resident: Estella Crocker ATTENDING PHYSICIAN STATEMENT I saw and evaluated the patient. I reviewed the resident's note and discussed the case with the resident. I agree with the resident's findings and plan as documented with exceptions below. SUBJECTIVE: Patient seen and examined. Overall the same. OBJECTIVE: Vital Signs Period Temp Pulse Resp BP Sys/Turner Pulse Ox Last 24 Hr 97.6 F-98.6 F 54-99 20-20 112-136/46-78 98-99 Intake & Output 09/29/18 09/30/18 10/01/18 10/02/18 23:59 23:59 23:59 23:59 Intake Total 1040 800 800 Balance 1040 800 800 Weight 234 lb 11.2 oz General: lying in bed in no acute distress Chest: CTAB, no rales or wheezing Abdomen: soft, obese, NT Extremities: no edema Neuro: AAOX3, power 5/5 all over, no pronator drift, improved exam, pos sensory exam to touch biltarel feet, still unable to feel touch abvoe to trunk upto level of umbilicus band like fashion, able to feel pressure, no spinal tenderness, sensation intact and symmetric to touch/pressure above level of umbilius, intact rectal tone, DTR diminished Active Medications Acetaminophen (Tylenol -) 650 mg PO Q6H PRN PRN Reason: HEADACHE Methylprednisolone Sodium Succinate (Solu-Medrol -) 1,000 mg IVPB DAILY SULY Stop: 10/03/18 10:01 Last Admin: 10/02/18 11:32 Dose: 1,000 mg Laboratory Results - last 24 hr 10/02/18 10/02/18 06:30 06:30 WBC 14.5 H RBC 4.35 Hgb 12.9 Hct 38.3 MCV 88.2 MCH 29.6 MCHC 33.5 RDW 13.1 Plt Count 390 MPV 8.0 Absolute Neuts (auto) 12.7 H Neutrophils % 87.3 H D Lymphocytes % 9.0 D Monocytes % 3.5 L Eosinophils % 0.0 D Basophils % 0.2 Nucleated RBC % 0 Sodium 140 Potassium 4.2 Chloride 106 Carbon Dioxide 26 Anion Gap 8 BUN 10.2 Creatinine 0.6 Est GFR (CKD-EPI)AfAm 146.83 Est GFR (CKD-EPI)NonAf 126.68 Random Glucose 132 H Calcium 9.2 Phosphorus 4.3 Magnesium 2.5 H ASSESSMENT AND PLAN: 23 yof with PMhx of ovarian cysts admitted with ascending sensory disturbances -Ascending sensory disturbances, tranverse myelitis, vs sensory variant GB, vs spinal cord lesion vs Multiple sclerosis Plan: Some clinical improvement. Continue stress does steroids. Neuro checks. Neurology input appreciated. Awaiting MRI brain/C-spine, EMG. Unsuccessful attempt at bedside LP. For IR guided LP. B12/hiv neg. Follow up QFT. ID input appreciated. Follow up WNV IgG/IgM, Mycoplasma titers/cold agglutinins. CSF studies to be sent, noted. Plan discussed with patient and mother at bedside in detail, all questions answered. Discussed with nursing.
[2018-10-02 14:06] LABS: MYCOPLASMA PNEUMONIAE,IG G AB 107 U/mL (0-99); MYCOPLASMA PNEUMONIAE,IGM AB <770 U/mL (0-769)
[2018-10-02 16:07] LABS: COLD AGGLUTININS Negative (Neg <1:32)
--- NOTE | 2018-10-02 19:08 | CONS ---
PHYSICAL MEDICINE REHABILITATION AND ELECTRODIAGNOSTIC CONSULTATION DATE OF CONSULTATION AND ELECTRODIAGNOSTIC STUDIES: 10/02/2018 HISTORY OF PRESENT ILLNESS: The patient is a 23-year-old woman who presents with a few months of tingling in her lower extremities which has progressed and now involves up to her waist or abdomen. Patient underwent imaging including lumbar x-rays which were normal on admission, September 29. Then, she underwent lumbar spine MRI which demonstrated mildly expansive, enhancing, intramedullary lesions at T1-T2 as well as T6-T7 with a differential diagnosis including transverse myelitis, MS, viral myelitis, bacterial myelitis, vasculitis, less likely neoplasm or B12 deficiency. Patient did undergo B12 level which was normal. Neurologic consultation and electrodiagnostic studies were ordered. Patient was started on IV steroids. Her blood work on admission: WBC was normal at 7.6, hemoglobin 13.0, platelet count 346,000; potassium 140, sodium 4.3, BUN 13.8, creatinine 0.6. Patient has noted some improvement in her symptoms since admission, but she states she still cannot feel her lower extremities very well and, therefore, loses her balance and stumbles over her feet with difficulty walking. Her last CBC showed WBC elevated at 14.5, probably due to steroids; hemoglobin 12.9; and platelet count 390. Chemistries were stable with sodium 140, potassium 4.2, chloride 106, CO2 of 26, BUN 10.2, creatinine 0.6. Magnesium level 4.3, and again, B12 was normal at 402. Patient is yet to get any therapy and is pending repeat lumbar puncture. She is now seen for electrodiagnostic evaluation. No symptoms in the upper extremities, such as numbness, tingling, or weakness. No bowel/bladder incontinence. PAST MEDICAL AND SURGICAL HISTORY: Review is otherwise negative except for some ovarian cysts for which she underwent a right salpingo-oophorectomy. 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 She lives in an apartment or a condo with just 3 steps to enter. ALLERGIES: PEANUTS. REVIEW OF SYSTEMS: No headache. No lightheadedness, dizziness. No blurry vision, double vision. No nausea, vomiting, difficulty swallowing, difficulty chewing. No chest pain, shortness of breath. No fever, chills. No bowel/bladder incontinence. No numbness, tingling, weakness of the upper extremities. Again, the numbness/tingling extends up past her waistline, possibly up to the top of the abdomen. PHYSICAL EXAMINATION: General: Slightly overweight, young woman seen both sitting as well as transferring, standing, and ambulating, in no acute distress. HEENT: She is normocephalic and atraumatic. Her extraocular muscles appear intact. She has no obvious facial weakness. Neck: Supple. Extremities: Without any pitting edema or calf tenderness. Neuromuscular: She is awake, alert, oriented x3. Cranial nerves 2-12 grossly intact. She has good strength and range of motion throughout her upper limbs and fairly good strength in the lower limbs. Patient has normal sensation in the upper extremities. In the lower extremities from the waist distally, she has diminished sensation from about the umbilicus or just past the umbilicus distally with depressed reflex and diminished pinprick, cold temperature, but fairly good motor power, and no gross atrophy and minimal weakness in dorsiflexion distally in the lower extremities. She transfers and stands, ambulates, but is very ataxic. RESULTS OF ELECTROMYOGRAPHY NERVE CONDUCTION STUDIES: Please refer to report for details. OVERALL IMPRESSION: 1. Normal study. 2. No electrodiagnostic evidence of polyneuropathy, lumbosacral radiculopathy, lumbosacral plexopathy, mononeuropathy. 3. MRI evidence of lesions in the thoracic spine, possible transverse myelitis. 4. Gait disorder. 5. Elevated body mass index. PLAN/SUGGESTION: 1. Patient continue to undergo neurologic workup including lumbar puncture. 2. Patient on IV steroids. 3. Physical therapy once cleared for mobilization including bed mobility, transfers, gait. 4. May benefit from short-term rehab if she is unable to go home versus home care and outpatient therapy. 5. DVT prophylaxis until more mobile. 6. Patient has very little pain. 7. Skin precautions. Avoid heel and sacral pressure. 8. Bowel regimen. Monitor for constipation. Thank you for this referral. CIRO HIGH M.D. [id number]
[2018-10-03 07:21] LABS: BASO % 0.1 % (0-2.0); HEMOGLOBIN 12.5 GM/dL (10.7-15.3); LYMPH % 11.8 % (8-40); MCH 29.9 pg (25.7-33.7); MCHC 33.9 g/dl (32.0-36.0); MEAN CELL VOLUME 88.1 fl (80-96); MEAN PLT VOLUME 7.8 fl (7.5-11.1); MONO % 5.4 % (3.8-10.2); NEUT % 82.7 % (42.8-82.8); PLATELET COUNT 371 K/MM3 (134-434); RDW 13.3 % (11.6-15.6); WHITE BLOOD COUNT 10.7 K/mm3 (4.0-10.0)
[2018-10-03 08:59] LABS: ALBUMIN 3.1 g/dl (3.4-5.0); BILIRUBIN,TOTAL 0.1 mg/dL (0.2-1); BLOOD UREA NITROGEN 14.8 mg/dL (7-18); CALCIUM 9.4 mg/dL (8.5-10.1); CREATININE 0.6 mg/dL (0.55-1.3); MAGNESIUM 2.5 mg/dL (1.8-2.4); PHOSPHOROUS 4.1 mg/dL (2.5-4.9); TOT PROT 6.4 g/dl (6.4-8.2)
--- NOTE | 2018-10-03 09:37 | PN ---
Physical Exam: SUBJECTIVE: Patient seen and examined. Got LP done today. Feels like sensation is improving b/l feet and down the thighs b/l. Feels bandlike sensation over abdomen still persisting. Still needing assistance to ambulate. No chest pain or shortness of breath. OBJECTIVE: Vital Signs Period Temp Pulse Resp BP Sys/Turner Pulse Ox Last 24 Hr 98.3 F-98.8 F 53-79 20-20 117-146/59-71 98-98 Vital Signs Temp 98.0 F 10/03/18 18:10 Pulse 66 10/03/18 22:00 Resp 18 10/03/18 22:00 BP 143/68 10/03/18 22:00 Pulse Ox 98 10/03/18 21:00 Intake & Output 10/03/18 10/03/18 10/04/18 11:59 23:59 11:59 Intake Total 350 730 Balance 350 730 Intake: IVPB 250 Oral 350 480 Other: Voiding Method Toilet Toilet # Unmeasured Voids Void 1 Bowel Movement No No GENERAL: The patient is obese, awake, alert, and fully oriented, in no acute distress. EYES: PERRL, extraocular movements intact, sclera anicteric, conjunctiva clear. ENT: moist mucous membranes. LUNGS: Breath sounds equal, clear to auscultation bilaterally, no wheezes, no crackles HEART: Regular rate and rhythm, S1, S2 ABDOMEN: Soft, nontender, nondistended, normoactive bowel sounds EXTREMITIES: 2+ pulses, warm, well-perfused, no edema. NEUROLOGICAL: Cranial nerves II through XII grossly intact. Reflexes nl b/l UEs. Reduced reflexes b/l LEs. Sensation, pressure and temperature appreciated normally symmetrically b/l lower extremity. Reduced fine touch b/l lower extremities up to lower back. Normal speech, gait not observed. CBC, BMP 10/03/18 06:40 10/03/18 06:50 Laboratory Results - last 24 hr 09/30/18 10/01/18 10/03/18 08:13 07:34 06:40 WBC 10.7 H RBC 4.20 Hgb 12.5 Hct 37.0 MCV 88.1 MCH 29.9 MCHC 33.9 RDW 13.3 Plt Count 371 MPV 7.8 Absolute Neuts (auto) 8.8 H Neutrophils % 82.7 Lymphocytes % 11.8 D Monocytes % 5.4 Eosinophils % 0.0 Basophils % 0.1 Nucleated RBC % 0 Sodium Potassium Chloride Carbon Dioxide Anion Gap BUN Creatinine Est GFR (CKD-EPI)AfAm Est GFR (CKD-EPI)NonAf Random Glucose Calcium Phosphorus Magnesium Total Bilirubin AST ALT Alkaline Phosphatase Total Protein Albumin Cold Agglutinins Negative GHASSAN Screen Negative M.pneumoniae IgG Titer 107 H M.pneumoniae IgM Titer <770 10/03/18 06:50 WBC RBC Hgb Hct MCV MCH MCHC RDW Plt Count MPV Absolute Neuts (auto) Neutrophils % Lymphocytes % Monocytes % Eosinophils % Basophils % Nucleated RBC % Sodium 143 Potassium 4.0 Chloride 110 H Carbon Dioxide 28 Anion Gap 6 L BUN 14.8 Creatinine 0.6 Est GFR (CKD-EPI)AfAm 146.83 Est GFR (CKD-EPI)NonAf 126.68 Random Glucose 120 H Calcium 9.4 Phosphorus 4.1 Magnesium 2.5 H Total Bilirubin 0.1 L AST 4 L ALT 18 Alkaline Phosphatase 47 Total Protein 6.4 Albumin 3.1 L Cold Agglutinins GHASSAN Screen M.pneumoniae IgG Titer M.pneumoniae IgM Titer Active Medications Generic Name Dose Route Start Last Admin Trade Name Freq PRN Reason Stop Dose Admin Acetaminophen 650 mg 09/29/18 15:33 Tylenol - PO Q6H PRN HEADACHE Methylprednisolone Sodium Succinate 1,000 mg 10/02/18 10:00 10/02/18 11:32 Solu-Medrol - IVPB 10/03/18 10:01 1,000 mg DAILY SULY Administration Current Medications Acetaminophen (Tylenol -) 650 mg PO Q6H PRN PRN Reason: HEADACHE MRI Cspine 10/02/18- Demyelination MRI- brain 10/02/18- no demyelination MRI- lumbar/Thoracic - evidence of myelitis L spine x-ray- neg ASSESSMENT/PLAN: Patient is a 23 year old woman with a PMH of Ovarian cysts s/p R salpingo- oophorectomy who presents to the ER for evaluation of worsening bilateral lower extremity numbness for the past 2 months which worsened 4 days ago. #Recurrent worsening bilateral lower extremity numbness for the past 2 months which worsened 4 days ago. Completed 5 days of solumed 1000mg, stop today- with elevated WBCs LP results pending For acute rehab at [facility] is on board, D/W SW Per neuro with Cspine demyelination, could be MS Transverse myelitis R/O infectious vs idiopathic transverse myelitis vs MS LP -unsuccessful- pending IR guided LP MRI- Cspine suggestive of demyelination MRI Thoracolumbar- Suggestive of myelitis Cont IV solumed 1000mg to complete 5 days and stop Guillian [place] Unlikely per Dr Pearl- more a diagnosis of exclusion-imaging findings needed for diagnosis EMG- Pending serologies to R/O infectious myelitis Other differentials mostly ruled out: Mononeuropathy multiplex vs small fiber neuropathy vs polyneuropathy vs idiopathic radiculoplexus neuropathy vs tumor (benign/malignant) vs trauma vs lumbosacral plexopathy vs mononeuritis Lyme titers,GHASSAN, HIV -negative, Syphillis -RPR- negative, Vit B12-nl, folate-nl EctL0u-3.9, TSH- 2.03-normal ESR-15, nl, #Ovarian cysts s/p R salpingo-oophorectomy secondary to torsion of ovarian cyst LMP 09/10 Stable For possible D/C to [facility] tomorrow Visit type - Emergency Visit Emergency Visit: Yes ED Registration Date: 09/29/18 Care time: The patient presented to the Emergency Department on the above date and was hospitalized for further evaluation of their emergent condition. - New Patient This patient is new to me today: No - Critical Care Critical Care patient: No - Discharge Referral Referred to [facility] Med P.C.: No ATTENDING PHYSICIAN STATEMENT I saw and evaluated the patient. I reviewed the resident's note and discussed the case with the resident. I agree with the resident's findings and plan as documented. SUBJECTIVE: OBJECTIVE: ASSESSMENT AND PLAN:
[2018-10-03] MEDS ORDERED: PT OWN MED DRAWER 7, Y5N ONE (11:57)
[2018-10-03] MEDS: methylPREDNISolone NA SUCC 1000 MG/8 ML VIAL IVPB SCH (12:31)
[2018-10-03 13:07] LABS: WEST NILE VIRUS AB SERUM,IGM Negative (Negative)
[2018-10-03 13:23] LABS: BF GLUCOSE (CSF ONLY) 81 mg/dL (40-70)
--- NOTE | 2018-10-03 14:00 | PN ---
Teaching Attending Note Name of Resident: Estella Crocker ATTENDING PHYSICIAN STATEMENT I saw and evaluated the patient. I reviewed the resident's note and discussed the case with the resident. I agree with the resident's findings and plan as documented with exceptions below. SUBJECTIVE: Patient seen and examined. Feels some sensation coming back. no new symptoms. OBJECTIVE: Vital Signs Period Temp Pulse Resp BP Sys/Turner Pulse Ox Last 24 Hr 98.3 F-9837 F 53-112 18-20 117-146/59-71 98-98 Intake & Output 09/30/18 10/01/18 10/02/18 10/03/18 23:59 23:59 23:59 23:59 Intake Total 755 448 2372 350 Balance 718 473 8807 350 General: lying in bed in no acute distress Chest: CTAB, no rales or wheezing Abdomen: soft, obese, NT Extremities: no edema Neuro: AAOX3, power 5/5 all over, no pronator drift, improved exam, pos sensory exam to touch bilatarel feet, decreased touch sensation bilateral LE upto trunk upto level of umbilicus band like fashion, able to feel pressure, no spinal tenderness, sensation intact and symmetric to touch/pressure above level of umbilius, intact rectal tone, DTR diminished Active Medications Acetaminophen (Tylenol -) 650 mg PO Q6H PRN PRN Reason: HEADACHE Methylprednisolone Sodium Succinate (Solu-Medrol -) 1,000 mg IVPUSH DAILY SULY Laboratory Results - last 24 hr 09/30/18 10/01/18 10/01/18 08:13 07:34 07:34 WBC RBC Hgb Hct MCV MCH MCHC RDW Plt Count MPV Absolute Neuts (auto) Neutrophils % Lymphocytes % Monocytes % Eosinophils % Basophils % Nucleated RBC % Sodium Potassium Chloride Carbon Dioxide Anion Gap BUN Creatinine Est GFR (CKD-EPI)AfAm Est GFR (CKD-EPI)NonAf Random Glucose Calcium Phosphorus Magnesium Total Bilirubin AST ALT Alkaline Phosphatase Total Protein Albumin CSF Glucose CSF Total Protein Cold Agglutinins Negative GHASSAN Screen Negative West Nile Virus IgG Ab Negative West Nile Virus IgM Ab Negative M.pneumoniae IgG Titer 107 H M.pneumoniae IgM Titer <770 10/01/18 10/03/18 10/03/18 12:50 06:40 06:50 WBC 10.7 H RBC 4.20 Hgb 12.5 Hct 37.0 MCV 88.1 MCH 29.9 MCHC 33.9 RDW 13.3 Plt Count 371 MPV 7.8 Absolute Neuts (auto) 8.8 H Neutrophils % 82.7 Lymphocytes % 11.8 D Monocytes % 5.4 Eosinophils % 0.0 Basophils % 0.1 Nucleated RBC % 0 Sodium 143 Potassium 4.0 Chloride 110 H Carbon Dioxide 28 Anion Gap 6 L BUN 14.8 Creatinine 0.6 Est GFR (CKD-EPI)AfAm 146.83 Est GFR (CKD-EPI)NonAf 126.68 Random Glucose 120 H Calcium 9.4 Phosphorus 4.1 Magnesium 2.5 H Total Bilirubin 0.1 L AST 4 L ALT 18 Alkaline Phosphatase 47 Total Protein 6.4 Albumin 3.1 L CSF Glucose 81 H CSF Total Protein 25 Cold Agglutinins GHASSAN Screen West Nile Virus IgG Ab West Nile Virus IgM Ab M.pneumoniae IgG Titer M.pneumoniae IgM Titer MRI brain and MRi C-spine results noted. ASSESSMENT AND PLAN: 23 yof with PMhx of ovarian cysts admitted with ascending sensory disturbances -Ascending sensory disturbances, Multilple sclerosis, vs tranverse myelitis, vs sensory variant GB, vs spinal cord lesion Plan: Some clinical improvement. Stress dose steroids per neuro MRI brain and spine with T1-T2 and T6-T7 contrast enchancing lesions and C1-C2 non contrast enhancing lesion suggestive of demyelination. Unsuccessful attempt at bedside LP. S/p IR guided LP today. Follow up CSF studies HSV/Lyme/WNV/Encephalitis panel/VDRL. Neurology input appreciated. Follow up EMG. ID input appreciated. WNV IgG/IgM neg. Mycoplasma IgG pos, IgM neg. Follow up cold agglutinins. Plan discussed with patient in detail, all questions answered. Discussed with nursing.
[2018-10-03 14:16] LABS: CSF APPEARANCE CLEAR; CSF COLOR COLORLESS; CSF WBC 8
--- NOTE | 2018-10-04 07:07 | PN ---
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 Patient has been ahving lower extremity were numbness, as if it goes to sleep for two months. She has enhacing lesion in T spine and c spine showed there non enhacing demyelinating lesion ( there is no symptoms due to cervical lesion), brain mri is unremarkable csf results are pending , initial result showed csf wbc 8, rbc 1, protein 25 and clucose 81 Based up on findings above, Patient most likely to have high probable diagnosis fo Multiple Sclerosis. Given patient was very functioning and She has significant neurological disability. I strongly recommend she would benefit from Rehab.
[2018-10-04 07:40] LABS: BASO % 0.1 % (0-2.0); HEMATOCRIT 35.8 % (32.4-45.2); HEMOGLOBIN 12.4 GM/dL (10.7-15.3); LYMPH % 15.2 % (8-40); MCH 30.3 pg (25.7-33.7); MCHC 34.5 g/dl (32.0-36.0); MEAN CELL VOLUME 87.7 fl (80-96); MEAN PLT VOLUME 7.8 fl (7.5-11.1); MONO % 5.5 % (3.8-10.2); NEUT % 79.2 % (42.8-82.8); PLATELET COUNT 350 K/MM3 (134-434); RBC 4.08 M/mm3 (3.60-5.2); RDW 13.2 % (11.6-15.6); WHITE BLOOD COUNT 9.5 K/mm3 (4.0-10.0)
[2018-10-04 08:21] LABS: ALBUMIN 2.9 g/dl (3.4-5.0); BILIRUBIN,TOTAL 0.1 mg/dL (0.2-1); BLOOD UREA NITROGEN 15.2 mg/dL (7-18); CALCIUM 8.7 mg/dL (8.5-10.1); CREATININE 0.6 mg/dL (0.55-1.3); MAGNESIUM 2.4 mg/dL (1.8-2.4); PHOSPHOROUS 4.6 mg/dL (2.5-4.9); POTASSIUM 4.1 mmol/L (3.5-5.1)
[2018-10-04] MEDS ORDERED: methylPREDNISolone NA SUCC 1000 MG/8 ML VIAL IVPB SCH (10:00)
--- NOTE | 2018-10-04 12:22 | PN ---
Teaching Attending Note Name of Resident: Estella Crocker ATTENDING PHYSICIAN STATEMENT I saw and evaluated the patient. I reviewed the resident's note and discussed the case with the resident. I agree with the resident's findings and plan as documented. SUBJECTIVE: Ms Polanco says she has tingling in her legs, but this is improved as she did not have feeling prior. No cp, sob, n/v. OBJECTIVE: Last Vital Signs Temp Pulse Resp BP Pulse Ox 36.8 C 56 L 18 120/50 L 98 10/04/18 05:54 10/04/18 05:54 10/04/18 05:54 10/04/18 05:54 10/03/18 21:00 Gen: nad, obese Pulm: ctab w/o w/r/r CV: rrr w/o m/r/g Abd: +bs, s/nt/nd Ext: no c/c/e CBC, BMP 10/04/18 06:35 10/04/18 06:35 ASSESSMENT AND PLAN: Problem List - Problems (1) Multiple sclerosis Assessment/Plan: -case d/w neurology -finished stress dose steroids -neurology strongly recommends STR for improvement of symptoms, patient is motivated and a good candidate Code(s): G35 - MULTIPLE SCLEROSIS
[2018-10-04 12:34] LABS: ANISOCYTOSIS 0; HELMET CELLS 0; HOWELL-JOLLY BODIES 0; MACROCYTOSIS 0; OVALOCYTE 0; PLATELET ESTIMATE NORMAL; ROULEAU 0; SICKELED CELLS 0; TARGET CELLS 0; TEAR DROP CELLS 0; TOXIC GRANULATION 0
--- NOTE | 2018-10-04 17:26 | PN ---
Physical Exam: SUBJECTIVE: Patient seen and examined. Feels like sensation is improving especially on plantar aspect of feet b/l. Still needs assistance to ambulate. OBJECTIVE: Vital Signs Period Temp Pulse Resp BP Sys/Turner Pulse Ox Last 24 Hr 98.0 F-98.9 F 56-83 18-20 119-143/50-74 98 Vital Signs Temp 98.5 F 10/04/18 18:18 Pulse 63 10/04/18 18:18 Resp 18 10/04/18 21:00 BP 143/73 10/04/18 18:18 Pulse Ox 98 10/04/18 21:00 Intake & Output 10/04/18 10/04/18 10/05/18 11:59 23:59 11:59 Intake Total 600 Balance 600 Intake: IVPB 0 Oral 600 Other: Voiding Method Toilet Toilet # Unmeasured Voids Void 1 1 Bowel Movement Yes No GENERAL: The patient is awake, alert, and fully oriented, in no acute distress. NECK:, supple. LUNGS: Breath sounds equal, clear to auscultation bilaterally, no wheezes, no crackles, HEART: Regular rate and rhythm, S1, S2 ABDOMEN: Soft, nontender, nondistended, normoactive bowel sounds, no guarding EXTREMITIES: 2+ pulses, warm, well-perfused, no edema. NEUROLOGICAL: No lateralizing signs. Improving light touch with more deficit on m,edial aspect of RLE from thigh to olivarez area. Better able to sense light touch on b/l plantar aspect of both feet. Temperature and pressure sensations the same b/l and intact. Bandlike, reduced sensation below t12 anteriorly and posteriorly. Reflexes LE reduced compared to UEs reflexes 2+. Normal speech, gait not observed. CBC, BMP 10/04/18 06:35 10/04/18 06:35 Laboratory Results - last 24 hr 09/29/18 10/04/18 10/04/18 20:10 06:35 06:35 WBC 9.5 RBC 4.08 Hgb 12.4 Hct 35.8 MCV 87.7 MCH 30.3 MCHC 34.5 RDW 13.2 Plt Count 350 MPV 7.8 Absolute Neuts (auto) 7.5 Neutrophils % 79.2 Neutrophils % (Manual) 87.8 H Band Neutrophils % 0.0 Lymphocytes % 15.2 D Lymphocytes % (Manual) 10.2 Monocytes % 5.5 Monocytes % (Manual) 1 L Eosinophils % 0.0 Eosinophils % (Manual) 0.0 Basophils % 0.1 Basophils % (Manual) 0.0 Myelocytes % (Man) 0 Promyelocytes % (Man) 0 Blast Cells % (Manual) 0 Nucleated RBC % 0 Metamyelocytes 0 Hypochromia 0 Toxic Granulation 0 Dohle Bodies 0 Platelet Estimate Normal Polychromasia 0 Poikilocytosis 0 Basophilic Stippling 0 Anisocytosis 0 Microcytosis 0 Macrocytosis 0 Spherocytes 0 Sickle Cells 0 Target Cells 0 Tear Drop Cells 0 Ovalocytes 0 Stomatocytes 0 Helmet Cells 0 Cassidy-Wickett Bodies 0 Index Rings 0 James Cells 0 Acanthocytes (Spur) 0 Rouleaux 0 Fragmented RBCs 0 Schistocytes 0 Sodium 142 Potassium 4.1 Chloride 107 Carbon Dioxide 29 Anion Gap 5 L BUN 15.2 Creatinine 0.6 Est GFR (CKD-EPI)AfAm 146.83 Est GFR (CKD-EPI)NonAf 126.68 Random Glucose 116 H Calcium 8.7 Phosphorus 4.6 Magnesium 2.4 Total Bilirubin 0.1 L AST 6 L ALT 24 Alkaline Phosphatase 44 L Total Protein 6.0 L Albumin 2.9 L TB Test (QFT) Nil 0.10 TB Test (QFT) Mitogen >10.00 TB Test (QFT) Antigen 0.11 TB Test (QFT) Negative TB Positive Criteria Active Medications Generic Name Dose Route Start Last Admin Trade Name Freq PRN Reason Stop Dose Admin Acetaminophen 650 mg 09/29/18 15:33 Tylenol - PO Q6H PRN HEADACHE Current Medications Acetaminophen (Tylenol -) 650 mg PO Q6H PRN PRN Reason: HEADACHE MRI Cspine 10/02/18- Demyelination MRI- brain 10/02/18- no demyelination MRI- lumbar/Thoracic - evidence of myelitis L spine x-ray- neg ASSESSMENT/PLAN: Patient is a 23 year old woman with a PMH of Ovarian cysts s/p R salpingo- oophorectomy who presents to the ER for evaluation of worsening bilateral lower extremity numbness for the past 2 months which worsened 4 days ago. #Recurrent worsening bilateral lower extremity numbness for the past 2 months which worsened 4 days prior to presentation Completed 5 days of solumed 1000mg, some LP results pending For acute rehab at [facility], pt is on board, D/W SW Per neuro with Cspine demyelination, could be MS Transverse myelitis R/O infectious vs idiopathic transverse myelitis vs MS LP -unsuccessful- pending IR guided LP MRI- Cspine suggestive of demyelination MRI Thoracolumbar- Suggestive of myelitis IV solumed 1000mg to complete 5 days and stop Guillian [place] Unlikely per Dr Pearl- more a diagnosis of exclusion-imaging findings needed for diagnosis EMG- Pending serologies to R/O infectious myelitis Other differentials mostly ruled out: Mononeuropathy multiplex vs small fiber neuropathy vs polyneuropathy vs idiopathic radiculoplexus neuropathy vs tumor (benign/malignant) vs trauma vs lumbosacral plexopathy vs mononeuritis Lyme titers,GHASSAN, HIV -negative, Syphillis -RPR- negative, Vit B12-nl, folate-nl GcpJ7l-2.9, TSH- 2.03-normal ESR-15, nl, #Ovarian cysts s/p R salpingo-oophorectomy secondary to torsion of ovarian cyst LMP 09/10 Stable For possible D/C to [facility] tomorrow Visit type - Emergency Visit Emergency Visit: Yes ED Registration Date: 09/29/18 Care time: The patient presented to the Emergency Department on the above date and was hospitalized for further evaluation of their emergent condition. - New Patient This patient is new to me today: No - Critical Care Critical Care patient: No - Discharge Referral Referred to [facility] Med P.C.: No ATTENDING PHYSICIAN STATEMENT I saw and evaluated the patient. I reviewed the resident's note and discussed the case with the resident. I agree with the resident's findings and plan as documented. SUBJECTIVE: OBJECTIVE: ASSESSMENT AND PLAN:
[2018-10-04] MEDS ORDERED: methylPREDNISolone NA SUCC 1000 MG/8 ML VIAL IVPB ONE (18:24)
--- NOTE | 2018-10-04 21:52 | PN ---
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 Patient has been ahving lower extremity were numbness, as if it goes to sleep for two months. Initially it was mild. She is not sure how it started and slowly it progressed to involved upto mid thoracic region. Patient is able to stand and walk. She denies any trauma, fever or cancer. Patient denies any bowel or bladder syptoms. Patient has normal mri of brain and c spine mri showed ole lesion NEUROLOGICAL EXAMINATION Alert oriented x 3 CN all intact motor 5/5 upper extremity her strengh is improved in lower extremity and she is able to walk independently otherwise there is no weaknes in hip flexion, extension, knee flexion and knee extension sensation There diminished senation to pin prick and fine touch upto t10 reflex are generalized diminished T spine showed there is T1-2, T6-7 level Lesion and swelling mri of brain normal c spine showed old lesion b12 is normal, hiv negative csf results are pending , initial result showed csf wbc 8, rbc 1, protein 25 and clucose 81 Assesment /Plan slowly progressive sensory symptoms in lower extremity ( sensory symptoms are worse than motor weaknes) There is T spine lesion . Suspect Tranverse myelitis . given she has old lesion in c spine, it is more likely to be MS Plan : Finished solumedrol today - some csf results pending - diagnosis and prognosis was discussed with patient - rehab transfer Thanking you so much Branden Pearl MD
[2018-10-05 07:56] LABS: BASO % 0.1 % (0-2.0); HEMATOCRIT 38.6 % (32.4-45.2); HEMOGLOBIN 13.3 GM/dL (10.7-15.3); MCH 30.4 pg (25.7-33.7); MCHC 34.6 g/dl (32.0-36.0); MEAN CELL VOLUME 87.8 fl (80-96); MEAN PLT VOLUME 7.7 fl (7.5-11.1); MONO % 1.7 % (3.8-10.2); NEUT % 78.2 % (42.8-82.8); PLATELET COUNT 422 K/MM3 (134-434); RBC 4.39 M/mm3 (3.60-5.2); RDW 13.3 % (11.6-15.6); WHITE BLOOD COUNT 7.2 K/mm3 (4.0-10.0)
[2018-10-05 08:15] LABS: BILIRUBIN,TOTAL 1.1 mg/dL (0.2-1); BLOOD UREA NITROGEN 15.3 mg/dL (7-18); CALCIUM 8.6 mg/dL (8.5-10.1); CREATININE 0.6 mg/dL (0.55-1.3); MAGNESIUM 2.6 mg/dL (1.8-2.4); PHOSPHOROUS 4.7 mg/dL (2.5-4.9); POTASSIUM 4.3 mmol/L (3.5-5.1); TOT PROT 6.6 g/dl (6.4-8.2)
[2018-10-05 11:33] LABS: ANISOCYTOSIS 0; HELMET CELLS 0; HOWELL-JOLLY BODIES 0; MACROCYTOSIS 0; OVALOCYTE 0; PLATELET ESTIMATE NORMAL; ROULEAU 0; SICKELED CELLS 0; TARGET CELLS 0; TEAR DROP CELLS 0; TOXIC GRANULATION 0
--- NOTE | 2018-10-05 15:59 | PN ---
Teaching Attending Note Name of Resident: Estella Crocker ATTENDING PHYSICIAN STATEMENT I saw and evaluated the patient. I reviewed the resident's note and discussed the case with the resident. I agree with the resident's findings and plan as documented. SUBJECTIVE: Ms Polanco is without complaint. Denies cp, sob, n/v OBJECTIVE: Last Vital Signs Temp Pulse Resp BP Pulse Ox 36.7 C 90 18 131/70 98 10/05/18 14:00 10/05/18 14:00 10/05/18 14:00 10/05/18 14:00 10/05/18 08:49 Gen: nad Pulm: ctab w/o w/r/r CV: rrr w/o m/r/g Abd: +bs, s/nt/nd Ext: no c/c/e CBC, BMP 10/05/18 07:15 10/05/18 07:15 ASSESSMENT AND PLAN: Problem List - Problems (1) Multiple sclerosis Assessment/Plan: -appreciate neurology assistance -PT note reviewed -recommending 3 hours of PT at [facility] -was independent prior to admission -awaiting final determination Code(s): G35 - MULTIPLE SCLEROSIS
--- NOTE | 2018-10-05 19:09 | PN ---
Physical Exam: SUBJECTIVE: Patient seen and examined. Feels like she is gradually improving in return of sensation. Now able to walk without assistance to bathroom. Can feel most of her toes. No chest pain, no shortness of breath. OBJECTIVE: Vital Signs Period Temp Pulse Resp BP Sys/Turner Pulse Ox Last 24 Hr 98.1 F-98.6 F 54-90 18-18 116-131/47-70 98-98 Vital Signs Temp 98.1 F 10/05/18 14:00 Pulse 90 10/05/18 14:00 Resp 18 10/05/18 14:00 BP 131/70 10/05/18 14:00 Pulse Ox 98 10/05/18 08:49 Intake & Output 10/04/18 10/05/18 10/05/18 23:59 11:59 23:59 Intake Total 600 350 340 Balance 600 350 340 Intake: IVPB 0 Oral 600 350 340 Other: Voiding Method Toilet Toilet Toilet # Unmeasured Voids Void 1 1 3 Bowel Movement No No No GENERAL: The patient is awake, alert, and fully oriented, in no acute distress. HEAD: No facial droop. EYES: PERRL, extraocular movements intact ENT: moist mucous membranes. LUNGS: Breath sounds equal, clear to auscultation bilaterally, no wheezes, no crackles, HEART: Regular rate and rhythm, S1, S2 ABDOMEN: Soft, nontender, nondistended, normoactive bowel sounds EXTREMITIES: Improved light touch sensation on lateral and now medial aspect of LUEs. Sensation better on L than R. Intact temperature and pressure. Band like sensation back posteriorly still without light touch sensation. Intact pressure and temperature sensation NEUROLOGICAL: Normal muscle strength globally. Reduced reflexes LUE b/l. Normally reflexes UE b/l CBC, BMP 10/05/18 07:15 10/05/18 07:15 Laboratory Results - last 24 hr 10/01/18 10/01/18 10/05/18 09:00 14:00 07:15 WBC 7.2 RBC 4.39 Hgb 13.3 Hct 38.6 MCV 87.8 MCH 30.4 MCHC 34.6 RDW 13.3 Plt Count 422 D MPV 7.7 Absolute Neuts (auto) 5.6 Neutrophils % 78.2 Neutrophils % (Manual) 68.7 Band Neutrophils % 1.0 Lymphocytes % 20.0 D Lymphocytes % (Manual) 24.3 D Monocytes % 1.7 L Monocytes % (Manual) 2 L D Eosinophils % 0.0 Eosinophils % (Manual) 0.0 Basophils % 0.1 Basophils % (Manual) 0.0 Myelocytes % (Man) 0 Promyelocytes % (Man) 0 Blast Cells % (Manual) 0 Nucleated RBC % 0 Metamyelocytes 0 Hypochromia 0 Toxic Granulation 0 Dohle Bodies 0 Platelet Estimate Normal Polychromasia 0 Poikilocytosis 0 Basophilic Stippling 0 Anisocytosis 0 Microcytosis 0 Macrocytosis 0 Spherocytes 0 Sickle Cells 0 Target Cells 0 Tear Drop Cells 0 Ovalocytes 0 Stomatocytes 0 Helmet Cells 0 Cassidy-Paragon Bodies 0 [place] Rings 0 [place] Cells 0 Acanthocytes (Spur) 0 Rouleaux 0 Fragmented RBCs 0 Schistocytes 0 Sodium Potassium Chloride Carbon Dioxide Anion Gap BUN Creatinine Est GFR (CKD-EPI)AfAm Est GFR (CKD-EPI)NonAf Random Glucose Calcium Phosphorus Magnesium Total Bilirubin AST ALT Alkaline Phosphatase Total Protein Albumin CSF West Nile IgG Ab Negative CSF West Nile IgM Ab Negative HSV I DNA Quant (PCR) Negative HSV II DNA Quant (PCR) Negative 10/05/18 07:15 WBC RBC Hgb Hct MCV MCH MCHC RDW Plt Count MPV Absolute Neuts (auto) Neutrophils % Neutrophils % (Manual) Band Neutrophils % Lymphocytes % Lymphocytes % (Manual) Monocytes % Monocytes % (Manual) Eosinophils % Eosinophils % (Manual) Basophils % Basophils % (Manual) Myelocytes % (Man) Promyelocytes % (Man) Blast Cells % (Manual) Nucleated RBC % Metamyelocytes Hypochromia Toxic Granulation Dohle Bodies Platelet Estimate Polychromasia Poikilocytosis Basophilic Stippling Anisocytosis Microcytosis Macrocytosis Spherocytes Sickle Cells Target Cells Tear Drop Cells Ovalocytes Stomatocytes Helmet Cells Cassidy-Paragon Bodies [place] Rings James Cells Acanthocytes (Spur) Rouleaux Fragmented RBCs Schistocytes Sodium 140 Potassium 4.3 Chloride 106 Carbon Dioxide 27 Anion Gap 8 BUN 15.3 Creatinine 0.6 Est GFR (CKD-EPI)AfAm 146.83 Est GFR (CKD-EPI)NonAf 126.68 Random Glucose 111 H Calcium 8.6 Phosphorus 4.7 Magnesium 2.6 H Total Bilirubin 1.1 H AST 9 L ALT 33 Alkaline Phosphatase 50 Total Protein 6.6 Albumin 3.0 L CSF West Nile IgG Ab CSF West Nile IgM Ab HSV I DNA Quant (PCR) HSV II DNA Quant (PCR) Active Medications Generic Name Dose Route Start Last Admin Trade Name Freq PRN Reason Stop Dose Admin Acetaminophen 650 mg 09/29/18 15:33 Tylenol - PO Q6H PRN HEADACHE ASSESSMENT/PLAN: Patient is a 23 year old woman with a PMH of Ovarian cysts s/p R salpingo- oophorectomy who presents to the ER for evaluation of worsening bilateral lower extremity numbness for the past 2 months which worsened 4 days ago. #Recurrent worsening bilateral lower extremity numbness for the past 2 months which worsened 4 days prior to presentation Completed 5 days of solumed 1000mg on 10/04/18 (pt did not get a dose on 09/29/18) , WNV Ab negative some LP results pending For acute rehab at [facility], pt is on board, D/W SW Per neuro with Cspine demyelination, could be MS Transverse myelitis R/O infectious vs idiopathic transverse myelitis vs MS LP -unsuccessful- pending IR guided LP MRI- Cspine suggestive of demyelination MRI Thoracolumbar- Suggestive of myelitis IV solumed 1000mg to complete 5 days and stop Guillian Norphlet Unlikely per Dr Pearl- more a diagnosis of exclusion-imaging findings needed for diagnosis EMG- Pending serologies to R/O infectious myelitis Other differentials mostly ruled out: Mononeuropathy multiplex vs small fiber neuropathy vs polyneuropathy vs idiopathic radiculoplexus neuropathy vs tumor (benign/malignant) vs trauma vs lumbosacral plexopathy vs mononeuritis Lyme titers,GHASSAN, HIV -negative, Syphillis -RPR- negative, Vit B12-nl, folate-nl IofH3p-1.9, TSH- 2.03-normal ESR-15, nl, #Ovarian cysts s/p R salpingo-oophorectomy secondary to torsion of ovarian cyst LMP 09/10 Stable For possible D/C to [facility] - CM/SW on board Visit type - Emergency Visit Emergency Visit: Yes ED Registration Date: 09/29/18 Care time: The patient presented to the Emergency Department on the above date and was hospitalized for further evaluation of their emergent condition. - New Patient This patient is new to me today: No - Critical Care Critical Care patient: No - Discharge Referral Referred to [facility] Med P.C[facility] No ATTENDING PHYSICIAN STATEMENT I saw and evaluated the patient. I reviewed the resident's note and discussed the case with the resident. I agree with the resident's findings and plan as documented. SUBJECTIVE: OBJECTIVE: ASSESSMENT AND PLAN:
[2018-10-05 23:33] VITALS: PULSE 77
[2018-10-06 08:06] VITALS: BP 109/57; TEMP 98
--- NOTE | 2018-10-06 17:14 | PN ---
Teaching Attending Note Name of Resident: Estella Crocker ATTENDING PHYSICIAN STATEMENT I saw and evaluated the patient. I reviewed the resident's note and discussed the case with the resident. I agree with the resident's findings and plan as documented. SUBJECTIVE: Ms Polanco is without complaint. Denies cp, sob, n/v. OBJECTIVE: Last Vital Signs Temp Pulse Resp BP Pulse Ox 36.6 C 77 18 109/57 L 98 10/06/18 06:00 10/05/18 23:00 10/06/18 09:00 10/06/18 06:00 10/06/18 09:00 Gen: nad Pulm: ctab w/o w/r/r CV: rrr w/o m/r/g Abd: +bs, s/nt/nd Ext: no c/c/e Please refer to discharge summary but in short Ms Polanco is a very pleasant 23 year old female who came in with numbness in BLE with inability to walk. She was seen by neurology and underwent MRI and LP. She was diagnosed with multiple sclerosis and treated with high dose steroids. She was seen by PT and improved. She is safe for discharge home with outpatient PT. Problem List - Problems (1) Multiple sclerosis Code(s): G35 - MULTIPLE SCLEROSIS
--- NOTE | 2018-10-06 19:42 | DS ---
Physical Exam: SUBJECTIVE: Patient seen and examined. Feels improving light sensation to plantar aspect of feet and improving gait, with reduced assistance. Still with bandlike loss of sensation around lumbar area down to coccyx. Completed 5 days of solumed iv 1000mg OBJECTIVE: Vital Signs Period Temp Pulse Resp BP Sys/Turner Pulse Ox Last 24 Hr 98 F-98.4 F 77 18-18 109-128/56-57 98-98 Vital Signs Temp 98 F 10/06/18 06:00 Pulse 77 10/05/18 23:00 Resp 18 10/06/18 09:00 BP 109/57 L 10/06/18 06:00 Pulse Ox 98 10/06/18 09:00 Intake & Output 10/05/18 10/06/18 10/06/18 23:59 11:59 23:59 Intake Total 640 0 Balance 640 0 Intake: IVPB 0 Oral 640 Other: Voiding Method Toilet Toilet # Unmeasured Voids Void 2 Bowel Movement Yes No PHYSICAL EXAM GENERAL: The patient is awake, alert, and fully oriented, in no acute distress. HEAD: Normal with no signs of trauma. EYES: PERRL, extraocular movements intact, ENT: Central tongue and uvula NECK: supple, no swellings or erythema. LUNGS: Breath sounds equal, clear to auscultation bilaterally, no wheezes, no crackles HEART: Regular rate and rhythm, S1, S2 without murmur ABDOMEN: Soft, nontender, obese, normoactive bowel sounds EXTREMITIES: 2+ pulses, warm, well-perfused, no edema. NEUROLOGICAL: AAOx3. No facial droop, 5/5 muscle strength globally. reduced reflexes b/l knee, ankls, downward plantar. Nl reflexes b/l UE. impaired light touch sensation more medial thighs and legs b/l. Intact temperature, pressure and deep touch sensation globally. Normal speech, unsteady gait. CBC, BMP 10/05/18 07:15 10/05/18 07:15 LABS Laboratory Results - last 24 hr 10/02/18 14:00 CSF VDRL Non reactive CSF Lyme IgG Ab 18 kDa Absent CSF Lyme IgG Ab 23 kDa Absent CSF Lyme IgG Ab 28 kDa Absent CSF Lyme IgG Ab 30 kDa Absent CSF Lyme IgG Ab 39 kDa Absent CSF Lyme IgG Ab 41 kDa Absent CSF Lyme IgG Ab 45 kDa Absent CSF Lyme IgG Ab 58 kDa Absent CSF Lyme IgG Ab 66 kDa Absent CSF Lyme IgG Ab 93 kDa Absent CSF Lyme IgM Ab 23 kDa Absent CSF Lyme IgM Ab 39 kDa Absent CSF Lyme IgM Ab 41 kDa Absent Lyme IgG Ab Interpret Negative Lyme IgM Ab Index Negative Laboratory Last Values WBC 7.2 K/mm3 (4.0-10.0) 10/05/18 07:15 RBC 4.39 M/mm3 (3.60-5.2) 10/05/18 07:15 Hgb 13.3 GM/dL (10.7-15.3) 10/05/18 07:15 Hct 38.6 % (32.4-45.2) 10/05/18 07:15 MCV 87.8 fl (80-96) 10/05/18 07:15 MCH 30.4 pg (25.7-33.7) 10/05/18 07:15 MCHC 34.6 g/dl (32.0-36.0) 10/05/18 07:15 RDW 13.3 % (11.6-15.6) 10/05/18 07:15 Plt Count 422 K/MM3 (134-434) D 10/05/18 07:15 MPV 7.7 fl (7.5-11.1) 10/05/18 07:15 Absolute Neuts (auto) 5.6 K/mm3 (1.5-8.0) 10/05/18 07:15 Neutrophils % 78.2 % (42.8-82.8) 10/05/18 07:15 Neutrophils % (Manual) 68.7 % (42.8-82.8) 10/05/18 07:15 Band Neutrophils % 1.0 % 10/05/18 07:15 Lymphocytes % 20.0 % (8-40) D 10/05/18 07:15 Lymphocytes % (Manual) 24.3 % (8-40) D 10/05/18 07:15 Monocytes % 1.7 % (3.8-10.2) L 10/05/18 07:15 Monocytes % (Manual) 2 % (3.8-10.2) L D 10/05/18 07:15 Eosinophils % 0.0 % (0-4.5) 10/05/18 07:15 Eosinophils % (Manual) 0.0 % (0-4.5) 10/05/18 07:15 Basophils % 0.1 % (0-2.0) 10/05/18 07:15 Basophils % (Manual) 0.0 % (0-2.0) 10/05/18 07:15 Myelocytes % (Man) 0 % (0-2) 10/05/18 07:15 Promyelocytes % (Man) 0 % (0-2) 10/05/18 07:15 Blast Cells % (Manual) 0 % (0-0) 10/05/18 07:15 Nucleated RBC % 0 % (0-0) 10/05/18 07:15 Metamyelocytes 0 % (0-2) 10/05/18 07:15 Hypochromia 0 10/05/18 07:15 Toxic Granulation 0 10/05/18 07:15 Dohle Bodies 0 10/05/18 07:15 Platelet Estimate Normal 10/05/18 07:15 Polychromasia 0 10/05/18 07:15 Poikilocytosis 0 10/05/18 07:15 Basophilic Stippling 0 10/05/18 07:15 Anisocytosis 0 10/05/18 07:15 Microcytosis 0 10/05/18 07:15 Macrocytosis 0 10/05/18 07:15 Spherocytes 0 10/05/18 07:15 Sickle Cells 0 10/05/18 07:15 Target Cells 0 10/05/18 07:15 Tear Drop Cells 0 10/05/18 07:15 Ovalocytes 0 10/05/18 07:15 Stomatocytes 0 10/05/18 07:15 Helmet Cells 0 10/05/18 07:15 Cassidy-Gene Autry Bodies 0 10/05/18 07:15 [place] Rings 0 10/05/18 07:15 James Cells 0 10/05/18 07:15 Acanthocytes (Spur) 0 10/05/18 07:15 Rouleaux 0 10/05/18 07:15 Fragmented RBCs 0 10/05/18 07:15 Schistocytes 0 10/05/18 07:15 ESR 15 mm/hr (0-20) 09/28/18 22:57 PT with INR 13.10 SEC (9.7-13.0) H 09/28/18 22:57 INR 1.11 (0.83-1.09) H 09/28/18 22:57 PTT (Actin FS) 31.4 SECONDS (25.2-36.5) 09/28/18 22:57 Sodium 140 mmol/L (136-145) 10/05/18 07:15 Potassium 4.3 mmol/L (3.5-5.1) 10/05/18 07:15 Chloride 106 mmol/L (98-107) 10/05/18 07:15 Carbon Dioxide 27 mmol/L (21-32) 10/05/18 07:15 Anion Gap 8 MMOL/L (8-16) 10/05/18 07:15 BUN 15.3 mg/dL (7-18) 10/05/18 07:15 Creatinine 0.6 mg/dL (0.55-1.3) 10/05/18 07:15 Est GFR (CKD-EPI)AfAm 146.83 10/05/18 07:15 Est GFR (CKD-EPI)NonAf 126.68 10/05/18 07:15 Random Glucose 111 mg/dL (74-106) H 10/05/18 07:15 Hemoglobin A1c % 4.9 % (4.2-6.3) 09/29/18 07:15 Calcium 8.6 mg/dL (8.5-10.1) 10/05/18 07:15 Phosphorus 4.7 mg/dL (2.5-4.9) 10/05/18 07:15 Magnesium 2.6 mg/dL (1.8-2.4) H 10/05/18 07:15 Total Bilirubin 1.1 mg/dL (0.2-1) H 10/05/18 07:15 AST 9 U/L (15-37) L 10/05/18 07:15 ALT 33 U/L (13-61) 10/05/18 07:15 Alkaline Phosphatase 50 U/L (45-117) 10/05/18 07:15 C-Reactive Protein 0.4 MG/DL (0.00-0.3) H 09/28/18 22:57 Total Protein 6.6 g/dl (6.4-8.2) 10/05/18 07:15 Albumin 3.0 g/dl (3.4-5.0) L 10/05/18 07:15 Vitamin B12 402 pg/ml (193-986) 09/29/18 07:15 TSH 2.03 uIU/ml (0.358-3.74) 09/29/18 07:15 Beta HCG, Quant < 1.0 mIU/ml 09/29/18 07:15 Urine Color Yellow 09/28/18 22:10 Urine Appearance Cloudy 09/28/18 22:10 Urine pH 5.0 (5.0-8.0) 09/28/18 22:10 Ur Specific [place] 1.031 (1.010-1.035) 09/28/18 22:10 Urine Protein Negative (NEGATIVE) 09/28/18 22:10 Urine Glucose (UA) Negative (NEGATIVE) 09/28/18 22:10 Urine Ketones Negative (NEGATIVE) 09/28/18 22:10 Urine Blood Negative (NEGATIVE) 09/28/18 22:10 Urine Nitrite Negative (NEGATIVE) 09/28/18 22:10 Urine Bilirubin Negative (NEGATIVE) 09/28/18 22:10 Urine Urobilinogen 0.2 mg/dL (0.2-1.0) 09/28/18 22:10 Ur Leukocyte Esterase 2+ (NEGATIVE) H 09/28/18 22:10 Urine WBC (Auto) 23 /hpf (0-5) 09/28/18 22:10 Urine RBC (Auto) 19.3 /hpf (0-4) 09/28/18 22:10 Urine Casts (Auto) 6 /lpf (0-8) 09/28/18 22:10 U Epithel Cells (Auto) 4.7 /HPF (0-5/HPF) 09/28/18 22:10 Urine Bacteria (Auto) 415.6 /hpf (NEGATIVE) 09/28/18 22:10 Urine HCG, Qual Negative 09/28/18 22:10 CSF Appearance Clear 10/01/18 12:50 CSF Color Colorless 10/01/18 12:50 CSF WBC 8 10/01/18 12:50 CSF RBC 1 10/01/18 12:50 CSF Neutrophils No Result Required. 10/01/18 12:50 CSF Lymphocytes No Result Required. 10/01/18 12:50 CSF Eosinophils No Result Required. 10/01/18 12:50 CSF Basophils No Result Required. 10/01/18 12:50 CSF Macrophages No Result Required. 10/01/18 12:50 CSF Plasma Cells No Result Required. 10/01/18 12:50 CSF Diff Comment No Result Required. 10/01/18 12:50 CSF Comment Tube 4 10/01/18 12:50 CSF Glucose 81 mg/dL (40-70) H 10/01/18 12:50 CSF Total Protein 25 mg/dL (15-45) 10/01/18 12:50 CSF VDRL Non reactive (Non [place]:<1:1) 10/02/18 14:00 CSF Lyme IgG Ab 18 kDa Absent (.) 10/02/18 14:00 CSF Lyme IgG Ab 23 kDa Absent (.) 10/02/18 14:00 CSF Lyme IgG Ab 28 kDa Absent (.) 10/02/18 14:00 CSF Lyme IgG Ab 30 kDa Absent (.) 10/02/18 14:00 CSF Lyme IgG Ab 39 kDa Absent (.) 10/02/18 14:00 CSF Lyme IgG Ab 41 kDa Absent (.) 10/02/18 14:00 CSF Lyme IgG Ab 45 kDa Absent (.) 10/02/18 14:00 CSF Lyme IgG Ab 58 kDa Absent (.) 10/02/18 14:00 CSF Lyme IgG Ab 66 kDa Absent (.) 10/02/18 14:00 CSF Lyme IgG Ab 93 kDa Absent (.) 10/02/18 14:00 CSF Lyme IgM Ab 23 kDa Absent (.) 10/02/18 14:00 CSF Lyme IgM Ab 39 kDa Absent (.) 10/02/18 14:00 CSF Lyme IgM Ab 41 kDa Absent (.) 10/02/18 14:00 CSF West Nile IgG Ab Negative (Negative) 10/01/18 14:00 CSF West Nile IgM Ab Negative (Negative) 10/01/18 14:00 Cold Agglutinins Negative TITER (Neg <1:32) 10/01/18 07:34 GHASSAN Screen Negative (.) 09/30/18 08:13 RPR Titer Nonreactive (NONREACTIVE) 09/29/18 01:20 Lyme Screen IgG & IgM <0.91 ISR (0.00-0.90) 09/28/18 22:57 Lyme IgG Ab Interpret Negative (.) 10/02/18 14:00 Lyme IgM Ab Index Negative (.) 10/02/18 14:00 West Nile Virus IgG Ab Negative (Negative) 10/01/18 07:34 West Nile Virus IgM Ab Negative (Negative) 10/01/18 07:34 HSV I DNA Quant (PCR) Negative (Negative) 10/01/18 09:00 HSV II DNA Quant (PCR) Negative (Negative) 10/01/18 09:00 HIV 1&2 Ag/Ab, 4th Gen Non reactive (Non Reactive) 09/29/18 01:20 HIV 1&2 Antibody Screen Negative 09/29/18 01:20 HIV P24 Antigen Negative 09/29/18 01:20 M.pneumoniae IgG Titer 107 U/mL (0-99) H 10/01/18 07:34 M.pneumoniae IgM Titer <770 U/mL (0-769) 10/01/18 07:34 TB Test (QFT) Nil 0.10 IU/mL (.) 09/29/18 20:10 TB Test (QFT) Mitogen >10.00 IU/mL (.) 09/29/18 20:10 TB Test (QFT) Antigen 0.11 IU/mL (.) 09/29/18 20:10 TB Test (QFT) Negative (Negative) 09/29/18 20:10 TB Positive Criteria (.) 09/29/18 20:10 MRI Cspine 10/02/18- Demyelination MRI- brain 10/02/18- no demyelination MRI- lumbar/Thoracic - evidence of myelitis L spine x-ray- neg HOSPITAL COURSE: Date of Admission:09/29/18 Date of Discharge: 10/06/18 ASSESSMENT/PLAN: Patient is a 23 year old woman with a PMH of Ovarian cysts s/p R salpingo- oophorectomy who presents to the ER for evaluation of worsening bilateral lower extremity numbness for the past 2 months which worsened 4 days ago. Pt had imaging and labs done with initial differential diagnosis of transverse myelitis vs MS. CSF was negative for infection, Lyme, WNV, RPR, DM, TSH, ESR, Vit B12, folate were negative. EMG was also done. Neurology was consulted and pt treated with 5 days of solumed. While thoracolumbar MRI was suggestive of myelits, MRI Cspine showed demyelination. Pt was sent home for outpt PT at [facility]. Minutes to complete discharge: 39 Discharge Summary Reason For Visit: PARESTHESIA OF BOTH LOWER EXTREMITIES Condition: Improved - Instructions Diet, Activity, Other Instructions: You came in due to weakness and loss of sensation Tests showed you could have multiple sclerosis We are sending you to [facility] to get out patient physical therapy 3 hours daily to help you return back to function Follow up with the neurologist -Dr Pearl in one week- A referral is attached, please call to make an appointment Follow up with your primary care doctor in one week If you think your symptoms are not getting better or are worsening, with increasing weakness, tingling or absence of sensation, or shortness of breath, or inability to control your urine or stool, please call 911 or go to the nearest emergency room Referrals: Branden Pearl MD [Staff Physician] - 1 Week Disposition: HOME - Home Medications Comprehensive Discharge Medication List: Ambulatory Orders Miscellaneous Medical Supply [Outpatient Order] 1 [facility] ASD[facility] #1 [facility] This patient is new to me today: No Emergency Visit: Yes ED Registration Date: 09/29/18 Care time: The patient presented to the Emergency Department on the above date and was hospitalized for further evaluation of their emergent condition. Critical Care patient: No - Discharge Referral Referred to [facility] No ATTENDING PHYSICIAN STATEMENT I saw and evaluated the patient. I reviewed the resident's note and discussed the case with the resident. I agree with the resident's findings and plan as documented. SUBJECTIVE: OBJECTIVE: ASSESSMENT AND PLAN:
[2018-10-07 12:07] LABS: LYME PCR CSF Negative (Negative)
[2018-10-10 21:08] LABS: MUMPS AB IGG CSF < 5.0 AU/mL (<=10.9)
== END 2018-10-06 12:59 | disposition home or self-care (01) | DRG 60 ==
LOC: JER 20:15 → JERBED 09-29 00:24 → J5S 09-29 03:30
PROVIDERS: ADMIT Internal Medicine; ATTEND Internal Medicine
PROC: 009U3ZX Drainage of Spinal Canal, Percutaneous Approach, Diagnostic (ICD-10-PCS; principal; 2018-10-03)
PROC: B01BZZZ Fluoroscopy of Spinal Cord (ICD-10-PCS; 2018-10-03)
DX: G35 Multiple sclerosis (principal); E66.9 Obesity, unspecified; Z68.36 Body mass index [BMI] 36.0-36.9, adult; R20.2 Paresthesia of skin
CPT/HCPCS: 36415; 62272; 70553-TC; 71045-TC-FY; 72100-TC-FY; 72156-TC; 72157-TC; 72158-TC; 80048; 80053; 81003; 82607; 82945; 83036; 83735; 84100; 84157; 84443; 84702; 84703; 85025; 85610; 85651; 85730; 86038; 86140; 86157; 86480; 86592; 86593; 86617; 86618; 86694; 86735; 86738; 86765; 86787; 86788; 86789; 87070; 87205; 87389; 87476; 87529; 87633; 93005; 93010; 95860-TC; 97116-GP; 97162-GP; 99283-25; A9579; C1887

== ENCOUNTER 2022-01-29 04:26 | Emergency (ER) | payer SELFPAY ==
[2022-01-29 04:42] VITALS: BP 114/76; PULSE 70; RESP 18; TEMP 97.6; BMI 42.7
== END 2022-01-29 06:34 | disposition home or self-care (01) ==
LOC: JER 04:26
DX: R55 Syncope and collapse (principal)
CPT/HCPCS: 0241U-QW; 82962; 84703; 93005; 93010; 99283-25